=== PATIENT | female | born 1945 | race Caucasian/White ===

== ENCOUNTER 2017-11-06 10:15 | Outpatient (RCR) | payer MEDICARE, SELFPAY ==
--- NOTE | 2017-10-15 10:05 | PR.DATECOV_ITS ---
Dates of Coverage Times for Dates Of Coverage; All dates of coverage are for physician supervision /manager medical affairs for during the times of 08:00 AM through 4:30 PM. Effective May 10, 2013 our hours will be changing to 8:00 to 4:30 on Saturday, Saturday and Saturday. First Date of the Month: 10/15/17 Last Date of the Month: 11/06/17
--- NOTE | 2017-10-15 10:06 | PCM.PR.HP ---
History of Present Illness Arrival date:: 10/15/17 Arrival time:: 10:06 Date of Evaluation: 10/15/17 Referring Physician: Dr. Víctor Garsia Primary Diagnosis: COPD moderate History of Present Illness: 72 year old female who presents to pulmonary rehabilitation today under the care of Dr. Víctor Garsia in [place], [place]. [facility] Breathless Scale: When is the patient short of breath? Y/N Grade: Description of Breathlessness: 0 I only get breathless with strenuous exercise. 1 I get short of breath when hurrying on level ground or walking up a slight hill. 2 On level ground, I walk slower than people of the same age because of breathless, or have to stop for breath when walking at my own pace. 3 I stop for breath after walking 100 yards or after a few minutes on level ground. 4 I am too breathless to leave the house or I am breathless when dressing. Respiratory Problems: Yes: Limited Range of Motion, Wheezing, Anxiety, Panic, Dyspnea with Activity No: Dyspnea at Rest, Dyspnea Lying Down Flat, Cough with Secretions - Secretions Normal Color:: clear Thick:: Yes Thin:: No Cough:: Yes Sleep Disorder Evaluation: CPAP at home for obstructive sleep apnea. EPWORTH SLEEPINESS SCALE 0 = NO chance of dozing 2 = MODERATE chance of dozing 1 = SLIGHT chance of dozing 3 = HIGH chance of dozing : SITUATION: CHANCE OF DOZING: Sitting and Reading Watching TV Sitting inactive in a public place (i.e. Movies) As a passenger in a car for an hour without a break Lying down to rest in the afternoon when permitted Sitting and talking to someone Sitting quietly after lunch without alcohol In a car, while stopped for a few minutes in traffic Total Total Equals: 1-6 = Adequate Sleep 7-8 = Average > 9 = Sleep Study/Consult Indicated Past Medical History Past Medical History: Arthitis, Diabetes - non-insulin dependent, Emphysema, Hypertension, High Cholesterol, Hypoxia - uses home oxygen at 2 liters., Obesity - BMI 35.19, Pulmonary Hypertension, Sleep Apnea - Obstructive sleep apnea (CPAP), - - hypercapnic respiratory failure, COPD, torn right meniscus in knee. Psychiatric History: anxiety Comments: Chronic respiratory failure with hypercapnia and hypoxia, COPD Moderate, Pulmonary Hypertension WHO Group III, lung nodule, History of nicotine use, BMI 35.0-35.9%, right leg primarily but both legs have to wear compression hose. Apparently have venous leaks in the lower extremities, vascular study found various leaks in the veins in the legs. Surgical History: appendectomy - age 15 ruptured appendix., cholecystectomy, - - broken arm age 8. Additional Family History: Family history includes, anemia, aneurysm, cancer, [id number] syndrome, brother heart failure, brain tumor, alcohol abuse maternal grandfather, esophageal cancer, thyroid problems, allergies, asthma, DM type II, hypertension, depression. - Social History Marital Status: Assistive Devices:: wheel chair for long distances, S.O.B. Other potential problems:: bad knees and feet pain. Interest/Hobbies:: gardening, watch TV, Alcohol:: No Drugs:: No Employment:: Retired Smoking Status: Smoker, status unknown Quit Smoking Since: July 07, 2017 Packs per day: 2 Years Smoked: 20 - Living Arrangement Patient lives with other person(s) in the home:: AROUND THE CLOCK - Current/ [facility] No Other Home Health:: No [facility] Cardiac Rehab:: No Life (Palliative) Care Services:: No Tobacco Use & Smoking Cessation:: No Pulmonary Rehab:: No Social History - Smoking History Smoking Status: Smoker, status unknown Years Smokin Packs Smoked per Day: 2 Hx Smoking Cessation Date: July 07, 2017 Hx Tobacco Use: Yes Hx Smoking Exposure: Yes - Alcohol Use Alcohol Usage: No - Substance Abuse Hx Substance Use: No - Occupation Occupation (List type of work in comments):: Retired - Hobbies, Recreation, Social Activities Hobbies: Watch TV, Other - gardening Recreational Activities: I am able to engage in a few activities Medications & Vaccination Info Home Medications: Ambulatory Orders Lisinopril 20 mg PO DAILY 03/05/17 Metformin HCl 500 mg PO BID 03/05/17 Simvastatin 20 mg PO DAILY 03/05/17 Verapamil HCl [Verapamil ER Pm] 200 mg DAILY 03/05/17 Albuterol Sulfate 1.25 mg IH 10/15/17 Oxygen, Home [Home Oxygen] 2 - 4 lpm NASAL 10/15/17 Do you use a peak flow meter at home?: No Do you use a spacer device with your inhalers?: No Number of hospital visits in the last year?: 1 - 6-days at [place] Reason for hospital visits: UNKNOWN Do you see your physician on a regular schedule?: No How often?: as needed Has adequate access & meets healthcare needs?: Yes - Drug Regimen Review Indication of potential clinical significant med issues (drug reactions, ineffective therapy, side effects, interactions, duplicate therapy, omissions, dose errors, or non-compliance)?: No problems found during review Was a physician or the physican designee contacted within one calendar day to resolve clinically significant medication issues, including reconcilitation?: No Review of Systems Constitutional: Denies: Chills, Fever, Weight Change HEENT: Reports: Hard of Hearing, Hearing Changes, Post Nasal Drip. Denies: Head Aches, Sinus Congestion, Sinus Drainage Cardiovascular: Denies: Chest Pain, Palpitations Respiratory: Reports: Shortness of Breath, Shortness of breath upon exertion, Wheezing. Denies: Cough, Shortness of breath at rest, Sputum production Musculoskeletal: Reports: Foot Pain, - - Right knee pain from torn meniscus. Denies: Joint Pain, Joint Tenderness Skin: Denies: Rash, Wounds Neurological: Denies: Numbness, Tingling, Focal weakness Psychiatric: Denies: Anxiety, Depression, Homicidal Ideations, Suicidal Ideations Advanced Directives - Advanced Directives Power of Regional Director: No Living Will: No Advance Directives Information Provided: No Advance Directives on File: No DNR Order?:: No Coping/Social Support/Other - Abuse and Neglect Do you feel safe in your surroundings?:: YES Are there sign/symptoms of abuse?: No Has anyone physically or mentally abused you?: No Has anyone threatened to harm you in any way?: No Been asked to sign a document that you don't understand?: No - Exacerbation History Number of Exacerbations in a year:: 1 Recent exposure to illness?: Yes Known carrier?: No Antibiotic Taken:: Yes I know I have an infection when:: usually cant tell when one is coming on, call the doctor and will get medications for it. - Nutrition Risk Factor Are you on a special diet?: No Diff. chewing/swallowing:: No Have you had a change in your weight?: No Physical Exam - Vital Signs Temperature: 98.7 F Pulse Rate: 79 Respiratory Rate: 20 Pulse Ox at rest: 91 Blood Pressure: 118/84 Nailbeds:: pink Height: 5 ft 2 in Weight:: 87.09 kg Body Mass Index (BMI): 35.1 - Physical Exam General: Alert, Oriented x3, Cooperative Neck: Supple, No JVD, Negative Carotid Bruits, Negative Hepatojugular Reflux Lungs: Normal air movement, Diminished, Rhonchi, Short of Breath, Wheezes Cardiovascular: Regular rate, Regular Rhythm, No murmurs Extremities: No clubbing, No cyanosis, No edema, Capillary Refill Less than 3 Seconds Musculoskeletal: No Tenderness to Palpation of Joints or Extremities Psych/Mental Status: Normal Affect, Appropriate - Pain Is Patient Pain Free?: Yes Pain Location: none - Hearing/Speech/Vision/Spiritual Cultural/Adventist Needs that may affect Treatment Plan: No Do you have any Spiritual/Emotional needs of which our Negative Stripper Ministry could be of assistance?: No Negative Stripper to contact Place of Orthodox?: No Primary Language: German Preferred Language: German Visual Difficulty: Near Sighted, Far Sighted - Bifocal lenses for vision correction - Motivation to Participate On a scale of 1 to 10, how prepared are you to commit to attending pulmonary rehabilitation?: 0 - didnt know it involved exercise! What do you see as barriers to successfully being able to complete the program?: walking on treadmill. Patient advised other modalities can be used. What do you see as the benefits of succesfully completing the program? In other words, what do you hope to get out of participating in the program?: lose some weight, breathe better using oxygen. Are there issues you are dealing with that will interfere with completing the program?: quit smoking eating more sweets. Do you have a spouse or signficant other, family or friends who will help support you to complete the program?: Diagnostic Data Review - Diagnostic and Imaging Results CXR:: no - 6 Minute Walk Test 6 Minute Walk Test: no - Cardiovascular Studies Echocardiogram: no - Pulmonary Function Test FEV1:: 1.15 FVC:: 1.87 FEV1/FVC%:: 61 Gold Classification: GOLD class II(mod. COPD)with FEV1/FVC <70%, 50%</= FEV1< 50% predicted Functioning ADL/IADL - Functional Capacity ADL/IADL GROOMING: Current ability to tend safely to personal hygiene needs (i.e., washing face/hands, hair care, shaving or make up, teeth or denture care, fingernail care).: Able to groom self unaided, w/ or w/o the use of assistive devices. Current ABILITY TO DRESS UPPER BODY safely (with or w/out dressing aids) including undergarments, pullovers, front-opening shirts & blouses, managing zippers, buttons, & snaps:: Gets clothes out, puts on, and removes from upper body w/o assist. Current ABILITY TO DRESS LOWER BODY safely (with or w/out dressing aids) including undergarments, slacks, socks or nylons, shoes:: Able to obtain, put on, & remove clothing and shoes w/out assistance. Bathing: Current ability to wash entire body safely. EXCLUDES grooming (washing face, washing hands and shampooing hair): Uses device to bathe independently in tub/shower, incl getting in &out TOILET TRANSFERRING: Current ability to get to & from the toilet/BSC safely and transfer on & off toilet/commode.: Gets to & from toilet, transfers independently w/ or w/o a device. TOILETING HYGIENE: Current ability to maintain perineal hygiene safely, adjust clothes and/or incontinence pads before & after using toilet, commode, bedpan, urinal. If managing ostomy, includes cleaning: Manages toileting hygiene & clothing management w/out assist TRANSFERRING: Current ability to move safely from bed to chair, or ability to turn and position self in bed if patient is bedfast.: Able to independently transfer. AMBULATION/LOCOMOTION: Current ability to walk safely, once in a standing position, or use wheelchair, once in a seated position, on a variety of surfaces.: Chairfast, unable to ambulate but is able to wheel self independently. FEEDING or EATING: Current ability to feed self meals and snacks safely. NOTE: This refers only to the process of eating, chewing and swallowing, not preparing the food to be eaten.: Able to independently fee ABILITY TO PLAN AND PREPARE MEALS: (e.g., cereal, sandwich) or reheat delivered meals safely.: IND prepare light meals/reheat delvrd meals/Or can but hasn't done so. ABILITY TO USE TELEPHONE: Current ability to answer the phone safely, including dialing numbers, and effectively using the telephone to communicate.: Able to dial numbers and answer calls appropriately and as desired. - Pt Functioning Prior to Problem Self-Care (e.g.,grooming, dressing, & bathing): INDEPENDENT Ambulation: NEEDED SOME HELP Transfer: INDEPENDENT Household tasks (e.g., light meal prep, laundry, shopping): INDEPENDENT
--- NOTE | 2017-10-15 10:17 | PR.HP_ITS ---
History of Present Illness Arrival date:: 10/15/17 Arrival time:: 10:06 Date of Evaluation: 10/15/17 Referring Physician: Dr. Víctor Garsia Primary Diagnosis: COPD moderate History of Present Illness: 72 year old female who presents to pulmonary rehabilitation today under the care of Dr. Víctor Garsia in [place], [place]. [facility] Breathless Scale: When is the patient short of breath? Y/N Grade: Description of Breathlessness: 0 I only get breathless with strenuous exercise. 1 I get short of breath when hurrying on level ground or walking up a slight hill. 2 On level ground, I walk slower than people of the same age because of breathless, or have to stop for breath when walking at my own pace. 3 I stop for breath after walking 100 yards or after a few minutes on level ground. 4 I am too breathless to leave the house or I am breathless when dressing. Respiratory Problems: Yes: Limited Range of Motion, Wheezing, Anxiety, Panic, Dyspnea with Activity No: Dyspnea at Rest, Dyspnea Lying Down Flat, Cough with Secretions - Secretions Normal Color:: clear Thick:: Yes Thin:: No Cough:: Yes Sleep Disorder Evaluation: CPAP at home for obstructive sleep apnea. EPWORTH SLEEPINESS SCALE 0 = NO chance of dozing 2 = MODERATE chance of dozing 1 = SLIGHT chance of dozing 3 = HIGH chance of dozing : SITUATION: CHANCE OF DOZING: Sitting and Reading Watching TV Sitting inactive in a public place (i.e. Movies) As a passenger in a car for an hour without a break Lying down to rest in the afternoon when permitted Sitting and talking to someone Sitting quietly after lunch without alcohol In a car, while stopped for a few minutes in traffic Total Total Equals: 1-6 = Adequate Sleep 7-8 = Average > 9 = Sleep Study/Consult Indicated Past Medical History Past Medical History: Arthitis, Diabetes - non-insulin dependent, Emphysema, Hypertension, High Cholesterol, Hypoxia - uses home oxygen at 2 liters., Obesity - BMI 35.19, Pulmonary Hypertension, Sleep Apnea - Obstructive sleep apnea (CPAP), - - hypercapnic respiratory failure, COPD, torn right meniscus in knee. Psychiatric History: anxiety Comments: Chronic respiratory failure with hypercapnia and hypoxia, COPD Moderate, Pulmonary Hypertension WHO Group III, lung nodule, History of nicotine use, BMI 35.0-35.9%, right leg primarily but both legs have to wear compression hose. Apparently have venous leaks in the lower extremities, vascular study found various leaks in the veins in the legs. Surgical History: appendectomy - age 15 ruptured appendix., cholecystectomy, - - broken arm age 8. Additional Family History: Family history includes, anemia, aneurysm, cancer, [id number] syndrome , brother heart failure, brain tumor, alcohol abuse maternal grandfather, esophageal cancer, thyroid problems, allergies, asthma, DM type II, hypertension , depression. - Social History Marital Status: Assistive Devices:: wheel chair for long distances, S.O.B. Other potential problems:: bad knees and feet pain. Interest/Hobbies:: gardening, watch TV, Alcohol:: No Drugs:: No Employment:: Retired Smoking Status: Smoker, status unknown Quit Smoking Since: July 07, 2017 Packs per day: 2 Years Smoked: 20 - Living Arrangement Patient lives with other person(s) in the home:: AROUND THE CLOCK - Current/ [facility] No Other Home Health:: No [facility] Cardiac Rehab:: No Life (Palliative) Care Services:: No Tobacco Use & Smoking Cessation:: No Pulmonary Rehab:: No Social History - Smoking History Smoking Status: Smoker, status unknown Years Smokin Packs Smoked per Day: 2 Hx Smoking Cessation Date: July 07, 2017 Hx Tobacco Use: Yes Hx Smoking Exposure: Yes - Alcohol Use Alcohol Usage: No - Substance Abuse Hx Substance Use: No - Occupation Occupation (List type of work in comments):: Retired - Hobbies, Recreation, Social Activities Hobbies: Watch TV, Other - gardening Recreational Activities: I am able to engage in a few activities Medications & Vaccination Info Home Medications: Ambulatory Orders Lisinopril 20 mg PO DAILY 03/05/17 Metformin HCl 500 mg PO BID 03/05/17 Simvastatin 20 mg PO DAILY 03/05/17 Verapamil HCl [Verapamil ER Pm] 200 mg DAILY 03/05/17 Albuterol Sulfate 1.25 mg IH 10/15/17 Oxygen, Home [Home Oxygen] 2 - 4 lpm NASAL 10/15/17 Do you use a peak flow meter at home?: No Do you use a spacer device with your inhalers?: No Number of hospital visits in the last year?: 1 - 6-days at [place] Reason for hospital visits: UNKNOWN Do you see your physician on a regular schedule?: No How often?: as needed Has adequate access & meets healthcare needs?: Yes - Drug Regimen Review Indication of potential clinical significant med issues (drug reactions, ineffective therapy, side effects, interactions, duplicate therapy, omissions, dose errors, or non-compliance)?: No problems found during review Was a physician or the physican designee contacted within one calendar day to resolve clinically significant medication issues, including reconcilitation?: No Review of Systems Constitutional: Denies: Chills, Fever, Weight Change HEENT: Reports: Hard of Hearing, Hearing Changes, Post Nasal Drip. Denies: Head Aches, Sinus Congestion, Sinus Drainage Cardiovascular: Denies: Chest Pain, Palpitations Respiratory: Reports: Shortness of Breath, Shortness of breath upon exertion, Wheezing. Denies: Cough, Shortness of breath at rest, Sputum production Musculoskeletal: Reports: Foot Pain, - - Right knee pain from torn meniscus. Denies: Joint Pain, Joint Tenderness Skin: Denies: Rash, Wounds Neurological: Denies: Numbness, Tingling, Focal weakness Psychiatric: Denies: Anxiety, Depression, Homicidal Ideations, Suicidal Ideations Advanced Directives - Advanced Directives Power of Interline Clerk: No Living Will: No Advance Directives Information Provided: No Advance Directives on File: No DNR Order?:: No Coping/Social Support/Other - Abuse and Neglect Do you feel safe in your surroundings?:: YES Are there sign/symptoms of abuse?: No Has anyone physically or mentally abused you?: No Has anyone threatened to harm you in any way?: No Been asked to sign a document that you don't understand?: No - Exacerbation History Number of Exacerbations in a year:: 1 Recent exposure to illness?: Yes Known carrier?: No Antibiotic Taken:: Yes I know I have an infection when:: usually cant tell when one is coming on, call the doctor and will get medications for it. - Nutrition Risk Factor Are you on a special diet?: No Diff. chewing/swallowing:: No Have you had a change in your weight?: No Physical Exam - Vital Signs Temperature: 98.7 F Pulse Rate: 79 Respiratory Rate: 20 Pulse Ox at rest: 91 Blood Pressure: 118/84 Nailbeds:: pink Height: 5 ft 2 in Weight:: 87.09 kg Body Mass Index (BMI): 35.1 - Physical Exam General: Alert, Oriented x3, Cooperative Neck: Supple, No JVD, Negative Carotid Bruits, Negative Hepatojugular Reflux Lungs: Normal air movement, Diminished, Rhonchi, Short of Breath, Wheezes Cardiovascular: Regular rate, Regular Rhythm, No murmurs Extremities: No clubbing, No cyanosis, No edema, Capillary Refill Less than 3 Seconds Musculoskeletal: No Tenderness to Palpation of Joints or Extremities Psych/Mental Status: Normal Affect, Appropriate - Pain Is Patient Pain Free?: Yes Pain Location: none - Hearing/Speech/Vision/Spiritual Cultural/Sikhism Needs that may affect Treatment Plan: No Do you have any Spiritual/Emotional needs of which our Radio Frequency Engineer Ministry could be of assistance?: No Radio Frequency Engineer to contact Place of Jehovah'S Witness?: No Primary Language: Botswanan Preferred Language: Botswanan Visual Difficulty: Near Sighted, Far Sighted - Bifocal lenses for vision correction - Motivation to Participate On a scale of 1 to 10, how prepared are you to commit to attending pulmonary rehabilitation?: 0 - didnt know it involved exercise! What do you see as barriers to successfully being able to complete the program? : walking on treadmill. Patient advised other modalities can be used. What do you see as the benefits of succesfully completing the program? In other words, what do you hope to get out of participating in the program?: lose some weight, breathe better using oxygen. Are there issues you are dealing with that will interfere with completing the program?: quit smoking eating more sweets. Do you have a spouse or signficant other, family or friends who will help support you to complete the program?: Diagnostic Data Review - Diagnostic and Imaging Results CXR:: no - 6 Minute Walk Test 6 Minute Walk Test: no - Cardiovascular Studies Echocardiogram: no - Pulmonary Function Test FEV1:: 1.15 FVC:: 1.87 FEV1/FVC%:: 61 Gold Classification: GOLD class II(mod. COPD)with FEV1/FVC <70%, 50%</= FEV1< 50 % predicted Functioning ADL/IADL - Functional Capacity ADL/IADL GROOMING: Current ability to tend safely to personal hygiene needs (i.e., washing face/hands, hair care, shaving or make up, teeth or denture care, fingernail care).: Able to groom self unaided, w/ or w/o the use of assistive devices. Current ABILITY TO DRESS UPPER BODY safely (with or w/out dressing aids) including undergarments, pullovers, front-opening shirts & blouses, managing zippers, buttons, & snaps:: Gets clothes out, puts on, and removes from upper body w/o assist. Current ABILITY TO DRESS LOWER BODY safely (with or w/out dressing aids) including undergarments, slacks, socks or nylons, shoes:: Able to obtain, put on , & remove clothing and shoes w/out assistance. Bathing: Current ability to wash entire body safely. EXCLUDES grooming (washing face, washing hands and shampooing hair): Uses device to bathe independently in tub/shower, incl getting in &out TOILET TRANSFERRING: Current ability to get to & from the toilet/BSC safely and transfer on & off toilet/commode.: Gets to & from toilet, transfers independently w/ or w/o a device. TOILETING HYGIENE: Current ability to maintain perineal hygiene safely, adjust clothes and/or incontinence pads before & after using toilet, commode, bedpan, urinal. If managing ostomy, includes cleaning: Manages toileting hygiene & clothing management w/out assist TRANSFERRING: Current ability to move safely from bed to chair, or ability to turn and position self in bed if patient is bedfast.: Able to independently transfer. AMBULATION/LOCOMOTION: Current ability to walk safely, once in a standing position, or use wheelchair, once in a seated position, on a variety of surfaces.: Chairfast, unable to ambulate but is able to wheel self independently. FEEDING or EATING: Current ability to feed self meals and snacks safely. NOTE: This refers only to the process of eating, chewing and swallowing, not preparing the food to be eaten.: Able to independently fee ABILITY TO PLAN AND PREPARE MEALS: (e.g., cereal, sandwich) or reheat delivered meals safely.: IND prepare light meals/reheat delvrd meals/Or can but hasn't done so. ABILITY TO USE TELEPHONE: Current ability to answer the phone safely, including dialing numbers, and effectively using the telephone to communicate.: Able to dial numbers and answer calls appropriately and as desired. - Pt Functioning Prior to Problem Self-Care (e.g.,grooming, dressing, & bathing): INDEPENDENT Ambulation: NEEDED SOME HELP Transfer: INDEPENDENT Household tasks (e.g., light meal prep, laundry, shopping): INDEPENDENT
--- NOTE | 2017-10-15 10:25 | PR.ITP_ITS ---
General Information - General Information Admitting Diagnosis: COPD Moderate - Education/Goals Individual Counseling: Initial Assessment: Dyspnea control techniques at rest, activity, and ADLs, Inhaled and respiratory medications, Exacerbation prevention & management, ADL management and pacing, Nutrition & weight management, Home exercise plan & guidelines Patient Goals: Breathe better: Initial Assessment, Increase endurance/stamina: Initial Assessment, Return to recreation/hobby: Initial Assessment, Symptom management: Initial Assessment, Improve weight: Initial Assessment Exercise - Initial Assessment - Visit Date of Eval: 10/15/17 - Problem/Goals Problems: No regular exercise, Knowledge deficit exercise guidelines, Knowledge deficit exercise safety - Exercise Prescription Mode:: Biodyne, Airdyne, NuStep, Arm Ergometer Frequency (x/week): 3 Duration:: 30 MET LEVEL:: 2 HR (bpm):: 104 - 104-112 THHR Exercise Progression: as tolerated - Plan Plan and Plan to Review:: Benefits of exercise, Core components of exercise, How to measure dyspnea level, How to monitor dyspnea level, Exercise intensity, Exercise safety guideline, Home exercise guidelines, [facility]: 3-4/11-13 Disease Management - Initial - Problems/Goals-Hypoxemia Hypoxemia Problems:: Hypoxemia, Poor knowledge of O2 use/safety Hypoxemia Goals:: Hypoxemia managed, Port system, Using O2 as Rx's safely - Problems/Goals-Medications Medication Goals: Correct technique/timing & care of MDI, DPI, nebulizer, and spacer. - Problems/Goals-Bronchial Hygiene Bronchial Hygiene Problems:: Ineffective secretion clearance, Respiratory infection Prevention/Management Bronchial Hygiene Goals:: Pt demonstrates effective cough, effective secretion clearance., Pt describes signs and symptoms of infection. - Initial Assessment SpO2:: 91 FiO2:: 0 Port O2:: 2 DME:: [facility] DME Medications: Yes MDI, Yes NEB Patient Reports:: Non-productive cough, Rare respiratory infections, 0-1/yr respiratory infection, Hospitalized in the past 12 months [list how many times] - Plans Hypoxemia Plan:: Monitor SpO2 rest & with exercise, Train appropriate O2 use at rest, Train appropriate O2 use with exercise, Train O2 safety & systems Reviewed prescribed medications:: Purpose, Schedule, Side effects, Importance of compliance Instruct correct technique/timing & care:: Nebulizer, Return demo use of inhaler Bronchial Hygiene Plan: Vibratory PEP device, Role of exercise in secretion clearance, Hydration, Hand hygiene, Evaluate sputum, When to call MD, Signs/ symptoms to report: Psychosocial - Initial Assess - Problems/Goals Problems: Impaired Q.O.L. - Psychosocial Test Depression:: Impaired QOL Referred to MD for counseling:: No - Plan Reviewed screening results: No Instructions given regarding:: Benefits of exercise, Relaxation techniques, Training in coping strategies Tobacco - Initial Assessment - Program Goals Tobacco Program Goals: Complete smoking cessation. Attend education classes. Improve Knowledge Test score - Stage of Change Stages of Change:: Contemplate - Learning Barriers Learning Barriers: Cognitive - Family Support Do you have family support?: Yes - Tobacco Use Tobacco Use: Cigarettes How long ago did you quit using tobacco products?: Less than 6 months ago How many cigarettes do you smoke per day?: 40 Years Smokin Do you use smokeless tobacco?: No - Intervention Smoking Cessation Referral:: No Individual Education/Counseling:: No Education Schedule Given:: Yes - Education Gave Education Materials For:: Pulmonary Disease, Risk Factors, Breathing Techniques, Medical Compliance, Pulmonary A&P, Exacerbation Signs & Symptoms, Stress & Relaxation Nutrition/Wt Mgmt - Initial - Problems/Goals Problems: Overweight Goals: Wt Loss 1-2 lbs per week - Weight Management Knowledge Deficit Management of:: Overweight Admit Height:: 5 ft 2 in Admit Weight:: 87.09 kg Admit BMI:: 35.1 - Diabetes Diabetes:: Yes Insulin: No Do you monitor your blood sugar at home?: No - as needed - Intervention Referral to Diabetic Clinic:: Yes Will attend diet classes:: Yes - Plan Nutrition Plan: Yes Nutrition education class:, Yes Medication education class [ Prednisone]:, Yes Weight control education class: Patient Health Questionnaire Initial Assessment 1. Little interest or pleasure in doing things: More than half the days 2. Feeling down, depressed, or hopeless: Not at all 3. Trouble falling or staying asleep, or sleeping too much: Not at all 4. Feeling tired or having little energy: More than half the days 5. Poor appetite or overeating: More than half the days 6. Feeling bad about yourself -- or that you are a failure or have let yourself or your family down: Not at all 7. Trouble concentrating on things, such as reading the newspaper or watching television: Not at all 8. Moving or speaking so slowly that other people could have noticed. Or the opposite - being so fidgety or restless that you have been moving around a lot more than usual: Nearly every day 9. Thoughts that you would be better off , or of hurting yourself in some way: Not at all How difficult have these problems made it for you to do your work, take care of things at home, or get along with other people?: Somewhat difficult Total Score: 9 COPD Knowledge Test Initial COPD is a lung disease that:: Makes it hard to breathe & gets worse over time In the [place] the term COPD describes 2 main lung conditions:: Emphysema & pulmonary hypertension The most common lung irritant that causes COPD is:: Cigarette smoke Common signs and symptoms of COPD include:: An ongoing cough/cough that produces a large amount of mucus, & SOB If you have COPD, what steps can you take?: All of the above Swelling of the ankles is common in COPD:: False Fatigue [tiredness] is common in COPD:: True Wheezing is common in COPD:: True Crushing chest pain is common in COPD:: False Rapid weight loss is common in COPD:: False Breathlessness is a normal response to exercise: True Exercise should be avoided if it makes you short of breath: False All bronchodilators act within 10 minutes: True A spacer device increases the medication to the lungs: False Annual flu vaccine is recommended for pts w/lung disease: True COPD Knowledge Test Total Score:: 12 COPD Assessment Test [CAT] - Questions Never cough = 0, Cough all the time = 5: 0 No phlegm = 0, Chest full of phlegm = 5: 1 No chest tightness = 0, Chest very tight = 5: 0 No breathless w/exertion = 0, Very breathless w/exertion = 5: 5 No limitations w/activity = 0, Very limited w/activity = 5: 4 Confident leaving home = 0, Not at all confident = 5: 1 Sleep soundly = 0, Don't sleep soundly = 5: 0 Lots of energy = 0, No energy at all = 5: 2 Total CAT score:: 13 Self-Efficacy Initial Assessment We would like to know how confident you are in doing certain activities. Please select your confidence level for:: Select your confidence level for the following using the scale 1-10 where 1 is not at all confident and 10 is totally confident. Your score is the average of all 6 responses. Fatigue: How confident are you that you can keep the fatigue caused by your disease from interfering with the things you want to do? Select Number: 8 Physical Discomfort or Pain: How confident are you that you can keep the physical discomfort or pain of your disease from interfering with the things you want to do? Select Number: 6 Emotional Distress: How confident are you that you can keep the emotional distress caused by your disease from interfering with the things you want to do? Select Number: 10 Other Symptoms or Health Problems: How confident are you that you can keep other symptoms or health problems from interfering with the things you want to do? Select Number: 1 Different Tasks and Activities: How confident are you that you can do the different tasks and activities needed to manage your health condition so as to reduce your need to see a doctor? Select Number: 8 Medication: How confident are you that you can do things other than just taking medication to reduce how much your illness affects your everyday life? Select Number: 7 Total Score:: 6 Nutrition Survey - Nutrition Survey Instructions Scoring Instructions: Scoring is as follows: Yes = 1 points. No = 0 point. Patient score that is >/=12 is considered to be at potential nutritional risk and could benefit from a referral to a registered dietitian. - Nutrition Survey Initial Have you lost >10 lbs over the past 2 months without trying?: No Are you following a special diet at home for diabetes, low fat, or low salt?: No Are you interested in meeting with a dietitian for help understanding your diet? : No Do you eat less than 3 meals a day?: Yes Do you eat fatty meats (otto, sausage, ribs, etc), fried foods, desserts, large amounts of salad dressings, margarine, butter, or cheese most days?: Yes Do you have food allergies? [Enter types in comment field]: No Do you eat in restaurants more than 3 times a week?: No Do you season food with salt, seasoning salt, or garlic salt?: Yes Do you used canned, boxed, frozen meals, or soups, seasoning packets?: Yes Total Score:: 4
[2017-10-15 10:52] VITALS: BP 118/84; PULSE 79; RESP 20; TEMP 37.1; O2SAT 91; BMI 35.1
[2017-10-15 11:35] VITALS: O2SAT 91; BMI 35.1
--- NOTE | 2017-11-04 13:47 | PCM.PR.DAT ---
Dates of Coverage Times for Dates Of Coverage; All dates of coverage are for physician supervision/medical laboratory technician for during the times of 08:00 AM through 4:30 PM. Effective May 10, 2013 our hours will be changing to 8:00 to 4:30 on Saturday, Saturday and Saturday. First Date of the Month: 11/07/17 Last Date of the Month: 12/06/17
--- NOTE | 2017-11-04 13:55 | PR.ITP_ITS ---
Exercise - 30-Day Assessment - Exercise Prescription Mode:: NuStep, Arm Ergometer Frequency (x/week): 3 Duration:: 30 Aerobic Exercise [30-60 min 3-7x/week]:: Not progressing Target heart rate: 84 - THRR 100-106 [facility] MET Level:: 2 - Home Exercise Home Exercise:: No Disease Management - 30-Day - Hypoxemia Reassessment: Has home O2 as prescribed, Uses port O2 as prescribed - Medications Medication list reviewed:: Yes Taking medications 100% of the time:: Approximately 50% of the time - Bronchial Hygiene Bronchial Hygiene Plan: Yes Pt demo correct for improved hydration - needs reinforced, Yes Pt demo correct for hand hygiene - needs reinforced Psychosocial - 30-Day - Assessment Reassessment: Practicing interventions - needs encouragement Tobacco - 30-Day Assessment - Program Goals Tobacco Program Goals: Complete smoking cessation. Attend education classes. Improve Knowledge Test score - Stage of Change Stages of Change:: Action - Learning Barriers Learning Barriers: Participates in education - Family Support Do you have family support?: Yes - - Tobacco Use Tobacco Use: Cigarettes Do you use smokeless tobacco?: No - Intervention Smoking Cessation Referral:: Yes Individual Education/Counseling:: No Education Schedule Given:: Yes - Education Gave Education Materials For:: Tobacco Triggers, Pulmonary Disease, Risk Factors , Breathing Techniques, Medical Compliance, Pulmonary A&P, Exacerbation Signs & Symptoms, Stress & Relaxation Nutrition/Wt Mgmt - 30-Day - Weight Management Weight Assessment:: Wt stable Weight:: 86.863 kg Weight Goals Progress:: Not progressing Patient Health Questionnaire 30-Day Re-eval Assessment 1. Little interest or pleasure in doing things: More than half the days 2. Feeling down, depressed, or hopeless: Several days 3. Trouble falling or staying asleep, or sleeping too much: Several days 4. Feeling tired or having little energy: More than half the days 5. Poor appetite or overeating: Not at all 6. Feeling bad about yourself -- or that you are a failure or have let yourself or your family down: Not at all 7. Trouble concentrating on things, such as reading the newspaper or watching television: More than half the days 8. Moving or speaking so slowly that other people could have noticed. Or the opposite - being so fidgety or restless that you have been moving around a lot more than usual: More than half the days 9. Thoughts that you would be better off , or of hurting yourself in some way: Several days How difficult have these problems made it for you to do your work, take care of things at home, or get along with other people?: Very difficult Total Score: 11 COPD Assessment Test [CAT] - Questions Never cough = 0, Cough all the time = 5: 0 No phlegm = 0, Chest full of phlegm = 5: 1 No chest tightness = 0, Chest very tight = 5: 0 No breathless w/exertion = 0, Very breathless w/exertion = 5: 5 No limitations w/activity = 0, Very limited w/activity = 5: 4 Confident leaving home = 0, Not at all confident = 5: 1 Sleep soundly = 0, Don't sleep soundly = 5: 0 Lots of energy = 0, No energy at all = 5: 2 Total CAT score:: 13 Self-Efficacy 30-Day Re-eval Assessment We would like to know how confident you are in doing certain activities. Please select your confidence level for:: Select your confidence level for the following using the scale 1-10 where 1 is not at all confident and 10 is totally confident. Your score is the average of all 6 responses. Fatigue: How confident are you that you can keep the fatigue caused by your disease from interfering with the things you want to do? Select Number: 8 Physical Discomfort or Pain: How confident are you that you can keep the physical discomfort or pain of your disease from interfering with the things you want to do? Select Number: 6 Emotional Distress: How confident are you that you can keep the emotional distress caused by your disease from interfering with the things you want to do? Select Number: 8 Other Symptoms or Health Problems: How confident are you that you can keep other symptoms or health problems from interfering with the things you want to do? Select Number: 1 Different Tasks and Activities: How confident are you that you can do the different tasks and activities needed to manage your health condition so as to reduce your need to see a doctor? Select Number: 7 Medication: How confident are you that you can do things other than just taking medication to reduce how much your illness affects your everyday life? Select Number: 6 Total Score:: 6
== END 2017-11-06 23:59 ==
LOC: PR 10:15
PROVIDERS: Family Provider Family Medicine; PCP Family Medicine; Visit Provider Internal Medicine Critical Care Medicine
DX: I27.20 Pulmonary hypertension, unspecified (principal)
CPT/HCPCS: 97150; G0424

== ENCOUNTER 2017-12-06 10:15 | Outpatient (RCR) | payer MEDICARE, SELFPAY ==
[2017-11-07 00:13] VITALS: BP 118/84; PULSE 79; RESP 20; TEMP 37.1; O2SAT 91; BMI 35.1
--- NOTE | 2017-12-02 15:59 | PR.DATECOV_ITS ---
Dates of Coverage Times for Dates Of Coverage; All dates of coverage are for physician supervision /family practice medical doctor for during the times of 08:00 AM through 4:30 PM. Effective May 10, 2013 our hours will be changing to 8:00 to 4:30 on Saturday, Saturday and Saturday. First Date of the Month: 12/08/17 Last Date of the Month: 01/06/18
--- NOTE | 2017-12-02 15:59 | PCM.PR.TP ---
Exercise - 60-Day Assessment - Current Level Mode:: NuStep, Arm Ergometer Frequency (x/week): 3 Duration:: 30 Aerobic Exercise [30-60 min 3-7x/week]:: Not progressing Target heart rate: 100 - max hr 88 [facility] MET Level:: 3 - Home Exercise Home Exercise:: No Disease Management - 60-Day - Hypoxemia Reassessment: Using O2 as prescribed, Has home O2 as prescribed, Uses port O2 as prescribed - Medications Medication list reviewed:: Yes Taking medications 100% of the time:: Approximately 75% of the time Medication reassessment: Yes Pt demonstrates correct technique timing for MDI, Yes Pt demonstrates correct technique timing for DPI, Yes Pt demonstrates correct technique timing for NEB, Yes Pt demonstrates correct technique timing for spacer - return use spacer device - Bronchial Hygiene Bronchial Hygiene Plan: Yes Pt demo correct for device - return use of acapella Psychosocial - 60-Day - Assessment Depression reassess: Management of stress: Not progressing, Management of depression: Not progressing, Practicing interventions: Not progressing Tobacco - 60-Day Assessment - Program Goals Tobacco Program Goals: Complete smoking cessation. Attend education classes. Improve Knowledge Test score - Stage of Change Stages of Change:: Contemplate - Learning Barriers Learning Barriers: Participates in education - Family Support Do you have family support?: Yes - Tobacco Use Do you use smokeless tobacco?: No - Intervention Smoking Cessation Referral:: No Individual Education/Counseling:: No Education Schedule Given:: Yes - Education Gave Education Materials For:: Pulmonary Disease, Risk Factors, Breathing Techniques, Medical Compliance, Pulmonary A&P, Exacerbation Signs & Symptoms, Stress & Relaxation Nutrition/Wt Mgmt - 60-Day - Weight Management Weight Assessment:: Wt stable Weight:: 191 lb Weight Goals Progress:: Not progressing Patient Health Questionnaire 60-Day Re-eval Assessment 1. Little interest or pleasure in doing things: More than half the days 2. Feeling down, depressed, or hopeless: Not at all 3. Trouble falling or staying asleep, or sleeping too much: Not at all 4. Feeling tired or having little energy: More than half the days 5. Poor appetite or overeating: More than half the days 6. Feeling bad about yourself -- or that you are a failure or have let yourself or your family down: Not at all 7. Trouble concentrating on things, such as reading the newspaper or watching television: Not at all 8. Moving or speaking so slowly that other people could have noticed. Or the opposite - being so fidgety or restless that you have been moving around a lot more than usual: Nearly every day 9. Thoughts that you would be better off , or of hurting yourself in some way: Not at all How difficult have these problems made it for you to do your work, take care of things at home, or get along with other people?: Somewhat difficult Total Score: 9 COPD Assessment Test [CAT] - Questions Never cough = 0, Cough all the time = 5: 0 No phlegm = 0, Chest full of phlegm = 5: 1 No chest tightness = 0, Chest very tight = 5: 0 No breathless w/exertion = 0, Very breathless w/exertion = 5: 5 No limitations w/activity = 0, Very limited w/activity = 5: 4 Confident leaving home = 0, Not at all confident = 5: 1 Sleep soundly = 0, Don't sleep soundly = 5: 0 Lots of energy = 0, No energy at all = 5: 2 Total CAT score:: 13 Self-Efficacy 60-Day Re-eval Assessment We would like to know how confident you are in doing certain activities. Please select your confidence level for:: Select your confidence level for the following using the scale 1-10 where 1 is not at all confident and 10 is totally confident. Your score is the average of all 6 responses. Fatigue: How confident are you that you can keep the fatigue caused by your disease from interfering with the things you want to do? Select Number: 8 Physical Discomfort or Pain: How confident are you that you can keep the physical discomfort or pain of your disease from interfering with the things you want to do? Select Number: 6 Emotional Distress: How confident are you that you can keep the emotional distress caused by your disease from interfering with the things you want to do? Select Number: 10 Other Symptoms or Health Problems: How confident are you that you can keep other symptoms or health problems from interfering with the things you want to do? Select Number: 1 Different Tasks and Activities: How confident are you that you can do the different tasks and activities needed to manage your health condition so as to reduce your need to see a doctor? Select Number: 8 Medication: How confident are you that you can do things other than just taking medication to reduce how much your illness affects your everyday life? Select Number: 7 Total Score:: 6
== END 2017-12-07 23:59 ==
LOC: PR 10:15
PROVIDERS: Family Provider Family Medicine; PCP Family Medicine; Visit Provider Internal Medicine Critical Care Medicine
DX: J44.9 Chronic obstructive pulmonary disease, unspecified (principal)
CPT/HCPCS: 97150; G0424

== ENCOUNTER → 2017-12-30 11:14 | Outpatient (CLI) | payer MEDICARE, SELFPAY ==
--- NOTE | 2017-12-30 11:19 | RAD_ITS ---
STUDY: X-RAY - THORACIC SPINE REASON FOR EXAM: Female, 72 years old. Pain. TECHNIQUE: 3 view(s) of the thoracic spine were obtained. COMPARISON: None. FINDINGS: Normal kyphosis of the thoracic spine. There is no substantial scoliosis. There is severe multilevel endplate spondylosis of the thoracic vertebrae. There is severe multilevel disc space narrowing of the thoracic spine. The soft tissue structures are unremarkable. RAD/Thoracic Spine 3 Views IMPRESSION: No acute abnormalities. 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 Electronically Signed: Jacob Duarte MD at 16:35 EDT , Service support ,
== END ==
PROVIDERS: Family Provider Family Medicine; PCP Family Medicine; Visit Provider Chiropractor
DX: S23.3XXA Sprain of ligaments of thoracic spine, initial encounter (principal)
CPT/HCPCS: 72072; 97150; G0424

== ENCOUNTER 2018-01-06 10:15 | Outpatient (RCR) | payer MEDICARE, SELFPAY ==
[2017-12-08 00:17] VITALS: BP 118/84; PULSE 79; RESP 20; TEMP 37.1; O2SAT 91; BMI 35.1
--- NOTE | 2017-12-31 10:14 | PR.ITP_ITS ---
Exercise - Final Assessment - Exercise Prescription Mode:: NuStep, Arm Ergometer Frequency (x/week): 3 - 12/30/17-01/06/18 Duration:: 30 Aerobic Exercise [30-60 min 3-7x/week]:: Not progressing Further followup [see D/C Summary]:: No Target heart rate: 100 [facility].5 MET Level:: 4.5 - Patient reached maximum potential - Home Exercise Home Exercise:: No Disease Management - Final - Hypoxemia Final Assessment: Demonstrates knowledge of O2 Rx at rest, Demonstrates knowledge of O2 Rx with exercise, Using O2 as prescribed, Has home O2 as prescribed, Uses port O2 as prescribed - Medications Medication list reviewed:: Yes Taking medications 100% of the time:: Met Psychosocial - Final Assess - Assessment Depression reassess: Management of stress: Met, Management of depression: Progressing, Practicing interventions: Progressing Tobacco - Final Assessment - Program Goals Tobacco Program Goals: Complete smoking cessation. Attend education classes. Improve Knowledge Test score - Stage of Change Stages of Change:: Action - Learning Barriers Learning Barriers: Participates in education - Family Support Do you have family support?: Yes - Tobacco Use Do you use smokeless tobacco?: No - Intervention Smoking Cessation Referral:: No Individual Education/Counseling:: No Education Schedule Given:: Yes - Education Education Goal Reached?: Yes Nutrition/Wt Mgmt - Final - Weight Management Weight:: 198 lb - down 3 pounds this month Patient Health Questionnaire Discharge Assessment 1. Little interest or pleasure in doing things: More than half the days 2. Feeling down, depressed, or hopeless: Not at all 3. Trouble falling or staying asleep, or sleeping too much: Not at all 4. Feeling tired or having little energy: More than half the days 5. Poor appetite or overeating: More than half the days 6. Feeling bad about yourself -- or that you are a failure or have let yourself or your family down: Not at all 7. Trouble concentrating on things, such as reading the newspaper or watching television: Not at all 8. Moving or speaking so slowly that other people could have noticed. Or the opposite - being so fidgety or restless that you have been moving around a lot more than usual: Nearly every day 9. Thoughts that you would be better off , or of hurting yourself in some way: Not at all How difficult have these problems made it for you to do your work, take care of things at home, or get along with other people?: Somewhat difficult Total Score: 9 COPD Knowledge Test Discharge COPD is a lung disease that:: Makes it hard to breathe & gets worse over time In the [place] the term COPD describes 2 main lung conditions:: Emphysema & chronic bronchitis The most common lung irritant that causes COPD is:: Cigarette smoke Common signs and symptoms of COPD include:: An ongoing cough/cough that produces a large amount of mucus, & SOB If you have COPD, what steps can you take?: All of the above Swelling of the ankles is common in COPD:: False Fatigue [tiredness] is common in COPD:: True Wheezing is common in COPD:: True Crushing chest pain is common in COPD:: False Rapid weight loss is common in COPD:: False Breathlessness is a normal response to exercise: True Exercise should be avoided if it makes you short of breath: False All bronchodilators act within 10 minutes: False A spacer device increases the medication to the lungs: True Annual flu vaccine is recommended for pts w/lung disease: True COPD Knowledge Test Total Score:: 15 COPD Assessment Test [CAT] - Questions Never cough = 0, Cough all the time = 5: 0 No phlegm = 0, Chest full of phlegm = 5: 1 No chest tightness = 0, Chest very tight = 5: 0 No breathless w/exertion = 0, Very breathless w/exertion = 5: 5 No limitations w/activity = 0, Very limited w/activity = 5: 4 Confident leaving home = 0, Not at all confident = 5: 1 Sleep soundly = 0, Don't sleep soundly = 5: 0 Lots of energy = 0, No energy at all = 5: 2 Total CAT score:: 13 Nutrition Survey - Nutrition Survey Instructions Scoring Instructions: Scoring is as follows: Yes = 1 points. No = 0 point. Patient score that is >/=12 is considered to be at potential nutritional risk and could benefit from a referral to a registered dietitian. - Nutrition Survey Discharge Have you lost >10 lbs over the past 2 months without trying?: No Are you following a special diet at home for diabetes, low fat, or low salt?: No Are you interested in meeting with a dietitian for help understanding your diet? : No Do you eat less than 3 meals a day?: Yes Do you eat fatty meats (otto, sausage, ribs, etc), fried foods, desserts, large amounts of salad dressings, margarine, butter, or cheese most days?: Yes Do you have food allergies? [Enter types in comment field]: No Do you eat in restaurants more than 3 times a week?: No Do you season food with salt, seasoning salt, or garlic salt?: Yes Do you used canned, boxed, frozen meals, or soups, seasoning packets?: Yes Total Score:: 4
== END 2018-01-06 23:59 ==
LOC: PR 10:15
PROVIDERS: Family Provider Family Medicine; PCP Family Medicine; Visit Provider Internal Medicine Critical Care Medicine
DX: J44.9 Chronic obstructive pulmonary disease, unspecified (principal)
CPT/HCPCS: 97150; G0424

== ENCOUNTER → 2018-01-22 07:41 | Outpatient (CLI) | payer MEDICARE, SELFPAY ==
--- NOTE | 2018-01-22 07:43 | CT_ITS ---
STUDY: CT SOFT TISSUE NECK WITH CONTRAST REASON FOR EXAM: Female, 72 years old. Pulmonary nodule follow up, left neck lump x 2 weeks. Hx diabetes, hypertension. RADIATION DOSAGE (If Supplied By Facility): CTDIvol = ( 20.99 ) mGy, DLP = ( 1558.77 ) mGycm TECHNIQUE: The patient was scanned in a multi-detector CT scanner. High resolution transaxial imaging was performed following intravenous administration of 100mL ml of Isovue 300 contrast material. Sagittal and coronal images were reconstructed. Individualized dose optimization techniques were used for this CT. COMPARISON: None. FINDINGS: Normal bilateral parotid glands. Normal bilateral dental specialist spaces. Normal bilateral parapharyngeal spaces. Normal bilateral carotid spaces. Normal bilateral sublingual and submandibular glands and spaces. There is borderline enlargement of the left submandibular lymph nodes level 1B the largest lymph node measures 9 mm. Normal visualized nasopharynx. Normal retropharyngeal space. Normal perivertebral space. Normal visualized bilateral faucial tonsils. The visualized tongue, tongue base and oropharynx are normal. There is borderline enlargement of the left submandibular lymph nodes level 1B the largest lymph node measures 9 mm. The remaining cervical lymph nodes (levels I-) are within normal size limits, and maintain normal morphology. There is no demonstrated solid or cystic mass lesion. There is no abnormal contrast enhancement. Normal epiglottis, bilateral vallecula and hypopharynx. The pre-epiglottic and paraglottic adipose spaces are normal. Normal visualized bilateral piriform sinuses, aryepiglottic folds, vocal cords, and arytenoid-cricoid articulations. Normal subglottic trachea. There is nonspecific nodule in the left thyroid lobe measures 1.5 cm. Normal visualized pulmonary apices. Normal visualized paranasal sinuses. Normal visualized cervical spine. CT/Soft Tissue Neck WITH Contrast IMPRESSION: There is borderline enlargement of the left submandibular lymph nodes level 1B the largest lymph node measures 9 mm. There is nonspecific nodule in the left thyroid lobe measures 1.5 cm. Electronically Signed: Rakesh Romano MD at 7:08 EDT Tel , Service support ,
--- NOTE | 2018-01-22 07:43 | CT_ITS ---
STUDY: CT CHEST WITH CONTRAST REASON FOR EXAM: Female, 72 years old. Pulmonary nodule follow up, left neck lump x 2 weeks. Hx diabetes, hypertension. RADIATION DOSAGE (If Supplied By Facility): CTDIvol = ( 20.99 ) mGy, DLP = ( 1558.77 ) mGycm TECHNIQUE: Transaxial imaging was performed following intravenous administration of 100mL ml of Isovue 300 contrast material. Individualized dose optimization techniques were used for this CT. COMPARISON: 07/07/2017 FINDINGS: The previously described nodule in the left lung lower lobe is no longer seen. There is focal thickening in the upper part of the major fissure measuring 6.5 mm most likely represents a scar from an old lesion image #32 is stable since the previous study. There is no demonstrated pleural abnormality. Normal heart and pericardium. Normal mediastinum. Normal hilar regions. Normal enhanced pulmonary arteries. Normal aorta arch and descending thoracic aorta. Normal osseous structures. There is a right renal cyst measures 4.6 cm has not significantly changed since the previous study. CT/Chest WITH Contrast IMPRESSION: The previously described nodule in the left lung lower lobe is no longer seen. There is focal thickening in the upper part of the major fissure measuring 6.5 mm most likely represents a scar from an old lesion image #32 is stable since the previous study. Electronically Signed: Rakesh Romano MD at 7:25 EDT Tel , Service support ,
[2018-01-22 08:01] LABS: CREATININE FINGERSTICK 0.7 mg/dL (0.55-1.02); EGFR FINGERSTICK > 60.0000 mL/min (>60)
== END ==
PROVIDERS: Family Provider Family Medicine; PCP Family Medicine; Visit Provider Family Medicine
DX: R91.1 Solitary pulmonary nodule (principal); Z01.812 Encounter for preprocedural laboratory examination
CPT/HCPCS: 70491; 71260; Q9967

== ENCOUNTER → 2018-07-04 11:34 | Outpatient (CLI) | payer MEDICARE, SELFPAY ==
[2018-07-04 12:16] LABS: Base Excess 5 mmol/L (-2 to +2); Bicarbonate 29.2 mmol/L (22-26); Blood Gas Specimen Type ART; O2 Delivery Device Room Air; PO2 62 mmHG (75-100); SITE R Radial; SO2 92 % (95-99); Time Given 1211; Total Carbon Dioxide 31 mmol/L; pCO2 44.5 mmHg (35-45); pH 7.43 (7.35-7.45)
== END ==
PROVIDERS: Family Provider Family Medicine; PCP Family Medicine; Referring Provider Internal Medicine Critical Care Medicine; Visit Provider Internal Medicine Critical Care Medicine
DX: J96.11 Chronic respiratory failure with hypoxia (principal); J96.12 Chronic respiratory failure with hypercapnia
CPT/HCPCS: 36600; 82803

== ENCOUNTER → 2018-07-22 12:07 | Outpatient (CLI) | payer MEDICARE, SELFPAY ==
[2018-07-22 14:14] LABS: Microalbumin,Random Urine 9.8 mg/L (NO RANGE EST.); Microalbumin:Creatinine Ratio 13.1 mg/g CRE (<30 mg/g CRE)
[2018-07-22 14:28] LABS: AST(SGOT) 11 U/L (15-37); Alanine Aminotransfer ALT/SGPT 27 U/L (13-56); Albumin, Serum 3.6 g/dL (3.2-5.0); Alkaline Phosphatase 96 U/L (45-117); Anion Gap 9 (5-15); BUN 19 mg/dL (7-18); BUN/Creat Ratio 26.2 RATIO (10-20); Bilirubin, Direct 0.12 mg/dL (0.00-0.30); Calcium,Total 8.7 mg/dL (8.5-10.1); Chloride 102 mmol/L (98-107); Cholesterol 144 mg/dL (200); Creatinine, Serum 0.72 mg/dL (0.55-1.02); EST Glomerular Filtration Rate 84 mL/min (>60); Est Glom Filt Rate - Afr Amer 102 mL/min (>60); Globulin 4.5 g/dL (2.2-4.2); Glucose 105 mg/dL (74-106); High Density Lipoprotein 43 mg/dL; Protein, Total 8.1 g/dL (6.4-8.2); Sodium Level 138 mmol/L (136-145); Triglycerides 133 mg/dL; Very Low Density Lipoprotein 27 mg/dL (5-40)
== END ==
PROVIDERS: Family Provider Family Medicine; PCP Family Medicine; Visit Provider Family Medicine
DX: E11.9 Type 2 diabetes mellitus without complications (principal)
CPT/HCPCS: 36415; 80048; 80061; 80076; 82043; 82570

== ENCOUNTER → 2019-05-20 10:56 | Outpatient (CLI) | payer MEDICARE, SELFPAY ==
[2018-01-07 00:18] VITALS: BMI 35.1
--- NOTE | 2019-05-20 11:00 | RAD_ITS ---
STUDY: X-RAY - LEFT KNEE REASON FOR EXAM: Bilateral knee pain for 10 years. TECHNIQUE: 4 view(s) of the knee. COMPARISON: Radiographs 04/15/2014. FINDINGS: Normal visualized distal femur. Normal visualized proximal tibia and fibula. Normal proximal tibiofibular articulation. There are marginal osteophytes and severe joint space narrowing of the medial femorotibial compartment increased since the prior study. There are marginal and surface osteophytes of the lateral femorotibial compartment without joint space narrowing. There are small marginal osteophytes and moderate joint space narrowing of the patellofemoral articulation as on the prior study. There is a small enthesophyte at the superior pole of the patella. There is mild vascular calcification. 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 Electronically Signed: Buck Cohen MD at 14:58 EDT Tel , Service support ,
--- NOTE | 2019-05-20 11:00 | RAD_ITS ---
STUDY: X-RAY - RIGHT KNEE REASON FOR EXAM: Bilateral knee pain for 10 years. TECHNIQUE: 4 view(s) of the knee. COMPARISON: Radiographs 06/03/2014. FINDINGS: Normal visualized distal femur. Normal visualized proximal tibia and fibula. Normal proximal tibiofibular articulation. There are marginal osteophytes, a subchondral cyst of the medial tibial plateau and severe joint space narrowing of the medial femorotibial compartment. There are marginal osteophytes and severe joint space narrowing of the lateral femorotibial compartment. There is small marginal osteophytes and moderate joint space narrowing of the patellofemoral articulation. There is vascular calcification. There is a small enthesophyte at the superior pole of the patella. RAD/Knee 4 or More Views IMPRESSION: Tricompartmental arthrosis increasing since 2013. Electronically Signed: Buck Cohen MD at 11:38 EDT Tel , Service support ,
[2019-05-20 12:31] LABS: Hemoglobin A1c 7.2 % (4.2-6.3)
[2019-05-20 12:57] LABS: AST(SGOT) 14 U/L (15-37); Alanine Aminotransfer ALT/SGPT 24 U/L (13-56); Albumin, Serum 3.6 g/dL (3.2-5.0); Alkaline Phosphatase 83 U/L (45-117); Anion Gap 6 (5-15); BUN 22 mg/dL (7-18); BUN/Creat Ratio 24.5 RATIO (10-20); Bilirubin, Direct 0.09 mg/dL (0.00-0.30); Calcium,Total 8.7 mg/dL (8.5-10.1); Chloride 105 mmol/L (98-107); Cholesterol 137 mg/dL (200); EST Glomerular Filtration Rate 65 mL/min (>60); Est Glom Filt Rate - Afr Amer 79 mL/min (>60); Globulin 4.7 g/dL (2.2-4.2); Glucose 150 mg/dL (74-106); High Density Lipoprotein 44 mg/dL; Potassium 4.5 mmol/L (3.5-5.1); Protein, Total 8.3 g/dL (6.4-8.2); Sodium Level 139 mmol/L (136-145); Triglycerides 116 mg/dL; Very Low Density Lipoprotein 23 mg/dL (5-40)
== END ==
PROVIDERS: Family Provider Family Medicine; PCP Family Medicine; Referring Provider Family Medicine; Visit Provider Family Medicine
DX: E11.9 Type 2 diabetes mellitus without complications (principal); M17.12 Unilateral primary osteoarthritis, left knee
CPT/HCPCS: 36415; 73564; 80048; 80061; 80076; 83036

== ENCOUNTER → 2019-08-25 17:37 | Outpatient (CLI) | payer MEDICARE, SELFPAY ==
[2018-01-07 00:18] VITALS: BMI 35.1
--- NOTE | 2019-08-25 17:40 | CT_ITS ---
STUDY: CT ABDOMEN AND PELVIS WITH CONTRAST REASON FOR EXAM: Female, 74 years old. Left lower quadrant pain. RADIATION DOSAGE (If Supplied By Facility): CTDIvol = ( 22.41 ) mGy, DLP = ( 2202.09 ) mGycm TECHNIQUE: Transaxial images were obtained from the dome of the diaphragm to the symphysis pubis with oral contrast. 100 CC ISOVUE 370 was administered. Sagittal and coronal images were reconstructed. Individualized dose optimization techniques were used for this CT. COMPARISON: None. FINDINGS: The visualized lung bases are unremarkable. And there are coronary artery calcifications. There is hepatomegaly with diffuse hepatic enlargement. There is non-visualization of the gallbladder, which may be secondary to either contraction or a prior cholecystectomy. Normal spleen. Normal pancreas. Normal bilateral adrenal glands. Renal cysts measuring up to 4.7 cm on the right. No hydronephrosis.. Normal visualized stomach. Normal small intestine. There are multiple colonic diverticula consistent with diverticulosis. There is non-visualization of the appendix. There is diffuse atherosclerotic calcification of the abdominal aorta, without a demonstrated aneurysm. Normal inferior vena cava. Normal retroperitoneum. Normal urinary bladder. There is atrophy of the uterus. There is no free fluid in the abdomen or pelvis. There is a small umbilical hernia containing fat. Degenerative changes of the spine. Sclerotic regions of thoracic and lumbar vertebra are nonspecific. CT/Abdomen/Pelvis WITH Contrast IMPRESSION: Colonic diverticulosis. No obstruction or abscess. Hepatomegaly. Electronically Signed: Messi Madrigal MD at 22:21 EST , Service support ,
== END ==
PROVIDERS: Family Provider Family Medicine; PCP Family Medicine; Referring Provider Nurse Practitioner Family; Visit Provider Nurse Practitioner Family
DX: K57.30 Diverticulosis of large intestine without perforation or abscess without bleeding (principal); R16.0 Hepatomegaly, not elsewhere classified; R10.32 Left lower quadrant pain
CPT/HCPCS: 74177; Q9967

== ENCOUNTER → 2019-09-07 15:12 | Outpatient (CLI) | payer MEDICARE, SELFPAY ==
[2018-01-07 00:18] VITALS: BMI 35.1
[2019-09-07 18:02] LABS: Absolute Lymphocyte Count 1.99 X10^3/uL (0.83-4.51); Absolute Neutrophil Count 7.6 X10^3/uL (2.0-7.7); Basophil# 0.03 X10^3/uL; Basophil% 0.3 % (0-1); Eosinophil# 0.14 X10^3/uL; Eosinophils% 1.3 % (0-5); Hematocrit 39.5 % (37-47); Hemoglobin 11.9 g/dL (12.0-15.0); Lymphocyte # 1.99 X10^3/ul (4.0); Lymphocyte % 18.6 % (19-41); Mean Corp Hgb Conc 30.1 g/dL (32-36); Mean Corpuscular Hgb 27.6 pg (27.0-32.0); Mean Corpuscular Volume 91.6 fL (81-99); Mean Platelet Vol. 10.2 fl (6.2-12.0); Monocyte# 0.86 X10^3/uL; NRBC Flagged by Analyzer 0 % (0-5); Neutrophil # 7.62 X10^3/uL (2.7-7.7); Neutrophil % 71.1 % (47-70); Platelet Count 319 K/mm3 (150-450); RBC Distribution Width CV 14.6 % (11.6-14.6); RBC Distribution Width SD 49.1 fl (35.1-43.9); Red Blood Count 4.31 M/mm3 (4.2-5.4); White Blood Count 10.7 K/mm3 (4.4-11.0)
[2019-09-07 18:17] LABS: ALB/GLOB Ratio 0.9 RATIO (0.9-2.4); AST(SGOT) 10 U/L (15-37); Alanine Aminotransfer ALT/SGPT 27 U/L (13-56); Albumin, Serum 3.7 g/dL (3.2-5.0); Alkaline Phosphatase 91 U/L (45-117); Anion Gap 6 (5-15); BUN 31 mg/dL (7-18); BUN/Creat Ratio 31.2 RATIO (10-20); Calcium,Total 9.3 mg/dL (8.5-10.1); Chloride 104 mmol/L (98-107); Creatinine, Serum 0.99 mg/dL (0.55-1.02); EST Glomerular Filtration Rate 58 mL/min (>60); Est Glom Filt Rate - Afr Amer 71 mL/min (>60); Globulin 4.3 g/dL (2.2-4.2); Glucose 177 mg/dL (74-106); Potassium 4.3 mmol/L (3.5-5.1); Sodium Level 139 mmol/L (136-145)
== END ==
PROVIDERS: Family Provider Family Medicine; PCP Family Medicine; Visit Provider Family Medicine
DX: Z01.818 Encounter for other preprocedural examination (principal)
CPT/HCPCS: 36415; 80053; 85025

== ENCOUNTER → 2019-09-11 10:34 | Outpatient (CLI) | payer MEDICARE, SELFPAY ==
[2018-01-07 00:18] VITALS: BMI 35.1
[2019-09-11 13:15] LABS: Hemoglobin A1c 8.6 % (4.2-6.3)
== END ==
PROVIDERS: Family Provider Family Medicine; PCP Family Medicine; Referring Provider Physician Assistant Surgical; Visit Provider Physician Assistant Surgical
DX: M17.0 Bilateral primary osteoarthritis of knee (principal); E11.9 Type 2 diabetes mellitus without complications
CPT/HCPCS: 36415; 83036

== ENCOUNTER → 2019-10-08 12:41 | Outpatient (CLI) | payer MEDICARE, SELFPAY ==
[2018-01-07 00:18] VITALS: BMI 35.1
--- NOTE | 2019-10-08 12:49 | VDLE_ITS ---
Reason For Study: edema RIGHT GSV is normal. CFV is compressible, spontaneous, phasic, competent and demonstrates normal augmentation. FV is compressible, spontaneous, phasic, competent and demonstrates normal augmentation. POP V is compressible, spontaneous, phasic, competent and demonstrates normal augmentation. T/P Trunk is compressible. PTV is compressible. RT PerV is compressible. Procedure Exam performed in department. The exam was diagnostic. A preliminary report was called and/or faxed to Christina Sloan. Interpretation Summary Deep veins of the right lower extremity are patent and compressible segmentally. There is no evidence of right lower extremity deep vein thrombosis. Valvular competence appears intact within the proximal deep venous system on the right . The right great saphenous vein appears patent and compressible segmentally. Ordering Physician: Christina Sloan Performed By: Bob Morales RVSergio
== END ==
PROVIDERS: PCP Family Medicine; Referring Provider Nurse Practitioner Family; Visit Provider Nurse Practitioner Family
DX: R60.0 Localized edema (principal)
CPT/HCPCS: 93971

== ENCOUNTER → 2019-10-12 13:29 | Outpatient (CLI) | payer MEDICARE, SELFPAY ==
[2018-01-07 00:18] VITALS: BMI 35.1
--- NOTE | 2019-10-12 13:45 | ECHOCS_ITS ---
Reason For Study: PHTN Procedure This was a 2D Doppler, Color Flow transthoracic echocardiogram. Exam performed in department. Left Ventricle Normal LV size. Left ventricular systolic function is normal. Stage 1 diastolic dysfunction. The estimated ejection fraction is 60 %. No regional wall motion abnormalities noted. Right Ventricle Normal RV size. Normal systolic function. Atria Normal left atrium. Normal right atrium. Mitral Valve There is mild mitral annular calcification. Tricuspid Valve Normal tricuspid valve. Mild tricuspid valve insufficiency. Pulmonary artery systolic pressure is 34 mmHg. Aortic Valve Trisinus/trileaflet aortic valve. Pulmonic Valve Normal pulmonic valve. Great Vessels Normal aortic root. The pulmonary artery is normal size. Normal inferior vena cava. Pericardium/Pleural No pericardial effusion. MMode/2D Measurements & Calculations LVIDd: 4.7 cm IVSd: 1.0 cm Ao root diam: 3.6 cm LVIDs: 2.3 cm LVPWd: 1.1 cm RVDd: 3.2 cm FS: 50.4 % LAV(MOD-bp): 41.4 ml LVAd ap4: 20.0 cm2 SV(MOD-sp4): 32.2 ml LAV(MOD-bp) Indexed: 21.0 ml/m2 EDV(MOD-sp4): 43.3 ml LAV(MOD-sp2): 52.5 ml EDV(sp4-el): 44.7 ml LAV(MOD-sp4): 27.5 ml LVAs ap4: 9.0 cm2 ESV(MOD-sp4): 11.1 ml ESV(sp4-el): 10.5 ml EF(MOD-sp4): 74.4 % EF(sp4-el): 76.5 % SV(sp4-el): 34.2 ml LA A4 area: 13.4 cm2 LA dimension(2D): 3.3 cm RA A4 area: 11.1 cm2 Time Measurements MV dec time: 0.25 sec Doppler Measurements & Calculations MV E max melquiades: 88.0 cm/sec Lat Peak E' Melquiades: 8.3 cm/sec Med Peak E' Melquiades: 6.3 cm/sec MV A max melquiades: 131.2 cm/sec E/E' lat: 10.6 E/E' med: 13.9 MV E/A: 0.67 MV V2 max: 140.3 cm/sec MV P1/2t max melquiades: 100.5 cm/sec Ao V2 max: 177.5 cm/sec MV max P.9 mmHg MV P1/2t: 127.0 msec Ao max P.6 mmHg MV V2 mean: 83.6 cm/sec Ao V2 mean: 123.3 cm/sec MV mean P.1 mmHg MV dec slope: 231.8 cm/sec2 Ao mean P.7 mmHg MV V2 VTI: 44.8 cm MVA(P1/2t): 1.7 cm2 Ao V2 VTI: 38.6 cm LV V1 max: 155.3 cm/sec PA V2 max: 115.5 cm/sec TR max melquiades: 269.3 cm/sec LV V1 max P.6 mmHg TR max P.0 mmHg Interpretation Summary Normal LV size. Left ventricular systolic function is normal. Stage 1 diastolic dysfunction. There is mild mitral annular calcification. The estimated ejection fraction is 60 %. Compared to prior study, there is no significant change. Ordering Physician: Víctor Garsia Referring Physician: Chelsey Watkins Performed By: Keke Lara, CINDY, RVT
== END ==
PROVIDERS: PCP Family Medicine; Referring Provider Internal Medicine Critical Care Medicine; Visit Provider Internal Medicine Critical Care Medicine
DX: I27.23 Pulmonary hypertension due to lung diseases and hypoxia (principal)
CPT/HCPCS: 93306

== ENCOUNTER → 2019-11-03 10:23 | Outpatient (CLI) | payer MEDICARE, SELFPAY ==
[2018-01-07 00:18] VITALS: BMI 35.1
--- NOTE | 2019-11-03 10:24 | BI_ITS ---
MAMMOGRAPHY - BILATERAL SCREENING REASON FOR EXAM: Female, 74 years old. Routine annual screening examination. PERTINENT HISTORY: TECHNIQUE: Digital bilateral breast teresita (3D mammographic acquisition) in the CC and MLO projections. 2-D mediolateral oblique (MLO) and craniocaudad (CC) views of both breasts were obtained. CAD: Full Field Digital Mammography with Computer Added Detection was performed. COMPARISON: None. FINDINGS: Breast Composition: Fatty There are no dominant masses or suspicious calcifications. No other significant abnormalities are identified. 2 stable intramammary lymph nodes are noted in the axillary tail of the right breast. BI/SCREEN MAMM (CAD) W/TERESITA BILAT IMPRESSION: Stable bilateral screening mammogram. Yearly follow-up mammogram recommended. (A) ASSESSMENT CATEGORY: BIRADS Category 1: Negative. A letter regarding these results will be sent to the patient by the facility within 30 days. Approximately 10% of breast cancers are not detected by mammography. A normal mammogram should not delay biopsy of a clinically suspicious abnormality. [id number] Electronically Signed: Ritchie Ignacio, at 17:03 EST Tel , Service support ,
--- NOTE | 2019-11-03 10:30 | BD_ITS ---
STUDY: DUAL ENERGY X-RAY ABSORPTIOMETRY / DXA REASON FOR EXAM: Female, 74 years old. Age of silvestre- 56. Pat is 208# and 62'' a loss of 1.25 and quot; per patient. Past hx of taking thyroid meds. Past hx of taking calcium and multi-vit. Past hx of smoking for 50 years. Type II diabetic on meds. Does not exercise. TECHNIQUE: Bone Mineral Density (BMD) measurements of lumbar spine and bilateral hips were obtained. COMPARISON: None. FINDINGS: Lumbar Spine (L1-L4): g/cm2 (1.040) / T-score (-1.0) / Z-score (0.7) Findings are suggestive of normal bone density with a low fracture risk. Left Femur Total: g/cm2 (0.965) / T-score (-0.3) / Z-score (1.3) Left Femoral Neck: g/cm2 (0.827) / T-score (-1.5) / Z-score (0.3) Right Femur Total: g/cm2 (0.856) / T-score (-1.2) / Z-score (0.4) Right Femoral Neck: g/cm2 (0.831) / T-score (-1.5) / Z-score (0.3) BD/Dexa Bone Density Study IMPRESSION: The patient is considered osteopenic as outlined below according to World [employer] Organization (WHO) criteria with a moderate fracture risk. Reference Information: The T-score is the number of standard deviations above or below the standard which is normal for young adults at their peak bone mineral density. The World Health Organization (WHO) interprets the T-scores as follows: Above -1 Normal bone density Between -1 and -2.5 Osteopenia Equal to / or below -2.5 Osteoporosis As a practical clinical guideline, osteopenia may be graded as follows: Mild -1 through -1.5 Moderate -1.6 through -2.0 Severe -2.1 through -2.4 The Z-score is the number of standard deviations above or below age-matched controls. A Z-score of less than -1.5 would be considered abnormal. References: 1. NIH Osteoporosis and Related Bone Diseases http://www.osteo.org 2. International Society for Clinical Densitometry http://www.iscd.org 3. National Osteoporosis Foundation http://www.nof.org Electronically Signed: Fernando Thompson, at 12:58 EST , Service support ,
== END ==
PROVIDERS: PCP Family Medicine; Referring Provider Nurse Practitioner Family; Visit Provider Nurse Practitioner Family
DX: Z12.31 Encounter for screening mammogram for malignant neoplasm of breast (principal); Z78.0 Asymptomatic menopausal state
CPT/HCPCS: 77063; 77067; 77080

== ENCOUNTER → 2021-02-21 11:47 | Outpatient (CLI) | payer MEDICARE, SELFPAY ==
[2018-01-07 00:18] VITALS: BMI 35.1
[2021-02-21 15:31] LABS: AST(SGOT) 11 U/L (15-37); Alanine Aminotransfer ALT/SGPT 17 U/L (13-56); Albumin, Serum 3.5 g/dL (3.2-5.0); Alkaline Phosphatase 83 U/L (45-117); Anion Gap 5 (5-15); BUN 26 mg/dL (7-18); Bilirubin, Direct 0.14 mg/dL (0.00-0.30); Calcium,Total 9.2 mg/dL (8.5-10.1); Chloride 100 mmol/L (98-107); Cholesterol 139 mg/dL (200); Creatinine, Serum 1.04 mg/dL (0.55-1.02); EST Glomerular Filtration Rate 55 mL/min (>60); Est Glom Filt Rate - Afr Amer 67 mL/min (>60); Globulin 4.9 g/dL (2.2-4.2); Glucose 181 mg/dL (74-106); High Density Lipoprotein 43 mg/dL; Potassium 4.5 mmol/L (3.5-5.1); Protein, Total 8.4 g/dL (6.4-8.2); Sodium Level 135 mmol/L (136-145); Thyroid Stim Hormone (TSH) 1.27 uIU/mL (0.358-3.74); Triglycerides 127 mg/dL; Very Low Density Lipoprotein 25 mg/dL (5-40)
== END ==
PROVIDERS: PCP Family Medicine; Referring Provider Family Medicine; Visit Provider Family Medicine
DX: E11.9 Type 2 diabetes mellitus without complications (principal)
CPT/HCPCS: 36415; 80048; 80061; 80076; 84443

== ENCOUNTER → 2021-08-11 13:48 | Outpatient (CLI) | payer MEDICARE, SELFPAY ==
--- NOTE | 2021-08-11 14:12 | VDLE_ITS ---
Reason For Study: Right leg swelling RIGHT GSV is normal. CFV is compressible, spontaneous, phasic, competent and demonstrates normal augmentation. FV is compressible, spontaneous, phasic, competent and demonstrates normal augmentation. POP V is compressible, spontaneous, phasic, competent and demonstrates normal augmentation. T/P Trunk is compressible. PTV is compressible. RT PerV is compressible. Procedure This is a venous duplex using B-mode, color flow and spectral Doppler. Exam performed in department. FV mid-distal visualized with color only, patient unable to tolerate compression. A preliminary report was called and/or faxed to June. VL/Venous Duplex US, Unilateral Interpretation Summary Deep veins of the right lower extremity are patent and compressible segmentally . There is no evidence of right lower extremity deep vein thrombosis. Valvular competence johnathan ears intact within the proximal deep venous system on the right . The right great saphenous vein a ppears patent and compressible segmentally. Ordering Physician: Chelsey Watkins Referring Physician: Chelsey Watkins M.D. Performed By: Kelly Li RVT
== END ==
PROVIDERS: PCP Family Medicine; Referring Provider Family Medicine; Visit Provider Family Medicine
DX: M79.89 Other specified soft tissue disorders (principal)
CPT/HCPCS: 93971

== ENCOUNTER → 2021-09-15 12:38 | Outpatient (CLI) | payer MEDICARE, SELFPAY ==
[2021-09-15 15:40] LABS: Absolute Lymphocyte Count 2.67 X10^3/uL (0.83-4.51); Absolute Neutrophil Count 6.9 X10^3/uL (2.0-7.7); Basophil# 0.04 X10^3/uL; Basophil% 0.4 % (0-1); Eosinophil# 0.14 X10^3/uL; Eosinophils% 1.3 % (0-5); Hematocrit 41.1 % (37-47); Hemoglobin 12.6 g/dL (12.0-15.0); Lymphocyte # 2.67 X10^3/ul (0.83-4.51); Lymphocyte % 25.1 % (19-41); Mean Corp Hgb Conc 30.7 g/dL (32-36); Mean Corpuscular Hgb 27.3 pg (27.0-32.0); Mean Platelet Vol. 10.1 fl (6.2-12.0); Monocyte# 0.86 X10^3/uL; Monocyte% 8.1 % (0-10); NRBC Flagged by Analyzer 0 % (0-5); Neutrophil # 6.87 X10^3/uL (2.7-7.7); Neutrophil % 64.5 % (47-70); Platelet Count 399 K/mm3 (150-450); RBC Distribution Width CV 14.9 % (11.6-14.6); RBC Distribution Width SD 48.8 fl (35.1-43.9); Red Blood Count 4.62 M/mm3 (4.2-5.4); White Blood Count 10.6 K/mm3 (4.4-11.0)
[2021-09-15 16:08] LABS: ALB/GLOB Ratio 0.7 RATIO (0.9-2.4); AST(SGOT) 11 U/L (15-37); Alanine Aminotransfer ALT/SGPT 24 U/L (13-56); Albumin, Serum 3.6 g/dL (3.2-5.0); Alkaline Phosphatase 80 U/L (45-117); Anion Gap 8 (5-15); BUN 21 mg/dL (7-18); BUN/Creat Ratio 22.9 RATIO (10-20); Calcium,Total 9.5 mg/dL (8.5-10.1); Chloride 99 mmol/L (98-107); Creatinine, Serum 0.92 mg/dL (0.55-1.02); EST Glomerular Filtration Rate 63 mL/min (>60); Est Glom Filt Rate - Afr Amer 77 mL/min (>60); Globulin 4.9 g/dL (2.2-4.2); Glucose 184 mg/dL (74-106); Potassium 4.2 mmol/L (3.5-5.1); Protein, Total 8.5 g/dL (6.4-8.2); Sodium Level 137 mmol/L (136-145)
[2021-09-18 08:43] LABS: Hepatitis B Surface Antibody Non-Reactive
[2021-09-19 07:08] LABS: HEPATITIS B SURFACE AG Negative (Negative); Hepatitis A IgM Antibody Negative (Negative); Hepatitis B Core AB IgM Negative (Negative); QNTFERON TB Mitogen Value > 10.00 IU/mL (.); QNTFERON TB Nil Value 0.01 IU/mL (.); QNTFERON TB1+ Ag Value 0.03 IU/mL (.); QNTFERON TB2+ Ag Value 0.05 IU/mL (.)
[2021-09-19 17:16] LABS: Hep C Antibodies 0.3 s/co ratio (0.0-0.9); Hepatitis A AB, Total Negative (Negative); QNTIFERON TB Positive Criteria Negative (Negative)
== END ==
PROVIDERS: PCP Family Medicine; Referring Provider Dermatology Pediatric Dermatology; Visit Provider Dermatology Pediatric Dermatology
DX: L40.0 Psoriasis vulgaris (principal); L82.1 Other seborrheic keratosis; D18.01 Hemangioma of skin and subcutaneous tissue; I89.0 Lymphedema, not elsewhere classified; L40.1 Generalized pustular psoriasis; Z79.899 Other long term (current) drug therapy
CPT/HCPCS: 36415; 80053; 80074; 85025; 86480; 86706; 86708

== ENCOUNTER → 2022-03-02 | Outpatient (CLI) | payer MEDICARE, SELFPAY ==
[2022-03-02 12:51] LABS: Microalbumin,Random Urine 13.9 mg/L (NO RANGE EST.); Microalbumin:Creatinine Ratio 10.9 mg/g CRE (<30 mg/g CRE)
[2022-03-02 12:55] LABS: AST(SGOT) 9 U/L (15-37); Alanine Aminotransfer ALT/SGPT 19 U/L (13-56); Albumin, Serum 3.5 g/dL (3.2-5.0); Alkaline Phosphatase 78 U/L (45-117); Anion Gap 7 (5-15); BUN 20 mg/dL (7-18); BUN/Creat Ratio 21.1 RATIO (10-20); Bilirubin, Direct 0.13 mg/dL (0.00-0.30); Calcium,Total 9.4 mg/dL (8.5-10.1); Chloride 101 mmol/L (98-107); Cholesterol 125 mg/dL (200); Creatinine, Serum 0.95 mg/dL (0.55-1.02); EST Glomerular Filtration Rate 61 mL/min (>60); Est Glom Filt Rate - Afr Amer 74 mL/min (>60); Globulin 4.6 g/dL (2.2-4.2); Glucose 230 mg/dL (74-106); High Density Lipoprotein 40 mg/dL; Potassium 4.6 mmol/L (3.5-5.1); Protein, Total 8.1 g/dL (6.4-8.2); Sodium Level 136 mmol/L (136-145); Triglycerides 105 mg/dL; Very Low Density Lipoprotein 21 mg/dL (5-40)
== END | disposition home or self-care (01) ==
LOC: MFPLAB 10:45
PROVIDERS: PCP Family Medicine; Referring Provider Family Medicine; Visit Provider Family Medicine
DX: E11.8 Type 2 diabetes mellitus with unspecified complications (principal)
CPT/HCPCS: 36415; 80048; 80061; 80076; 82043; 82570

== ENCOUNTER → 2022-10-16 | Outpatient (CLI) | payer MEDICARE, SELFPAY ==
--- NOTE | 2022-10-16 16:10 | RAD_ITS ---
INDICATION: JAW SWELLING EXAMINATION/TECHNIQUE: X-RAY - XR Mandible Complete Min 4 Views COMPARISON: None. FINDINGS: SOFT TISSUES: No soft tissue swelling or gas. No radiopaque foreign body. BONES/TMJs: No fracture or subluxation. No sclerotic or destructive changes observed. DENTITION: No acute abnormality. RAD/Mandible Min 4 Views IMPRESSION: Negative. Electronically Signed: Quitnin Garcia MD at 21:54 EST ,
== END | disposition home or self-care (01) ==
LOC: MTRAD 16:03
PROVIDERS: PCP Family Medicine; Referring Provider Family Medicine; Visit Provider Family Medicine
DX: R22.0 Localized swelling, mass and lump, head (principal)
CPT/HCPCS: 70110

== ENCOUNTER → 2022-10-17 | Outpatient (CLI) | payer MEDICARE, SELFPAY ==
--- NOTE | 2022-10-17 11:57 | BI_ITS ---
MAMMOGRAPHY - BILATERAL SCREENING REASON FOR EXAM: Female, 77 years old. Routine annual screening examination. PERTINENT HISTORY: Non-contributory. TECHNIQUE: Digital bilateral breast dorys (3D mammographic acquisition) in the CC and MLO projections. 2-D mediolateral oblique (MLO) and craniocaudad (CC) views of both breasts were obtained. CAD: Full Field Digital Mammography with Computer Added Detection was performed. COMPARISON: Comparison is made with prior study dated 11/03/2019 and 01/28/2015. FINDINGS: Breast Composition: The breasts are almost entirely fatty. There are no dominant masses or suspicious calcifications. Stable small benign-appearing bilateral axillary lymph nodes. No other significant abnormalities are identified. There has been no significant change since the prior study. BI/SCREENING MAMM (CAD), BILAT IMPRESSION: Stable bilateral screening mammogram. Yearly follow-up mammogram recommended. (A) ASSESSMENT CATEGORY: BIRADS Category 2: Benign. A letter regarding these results will be sent to the patient by the facility within 30 days. Approximately 10% of breast cancers are not detected by mammography. A normal mammogram should not delay biopsy of a clinically suspicious abnormality. [id number] Electronically Signed: Fernando Thompson MD at 12:58 EST ,
== END | disposition home or self-care (01) ==
LOC: OPBI 11:55
PROVIDERS: PCP Family Medicine; Referring Provider Family Medicine; Visit Provider Family Medicine
DX: Z12.31 Encounter for screening mammogram for malignant neoplasm of breast (principal)
CPT/HCPCS: 77067

== ENCOUNTER → 2023-04-16 | Outpatient (CLI) | payer MEDICARE, SELFPAY ==
[2023-04-16 13:28] LABS: AST(SGOT) 13 U/L (15-37); Alanine Aminotransfer ALT/SGPT 23 U/L (13-56); Albumin, Serum 3.4 g/dL (3.2-5.0); Alkaline Phosphatase 75 U/L (45-117); Anion Gap 9 (5-15); BUN 21 mg/dL (7-18); BUN/Creat Ratio 20.8 RATIO (10-20); Bilirubin, Direct 0.14 mg/dL (0.00-0.30); Calcium,Total 8.7 mg/dL (8.5-10.1); Chloride 101 mmol/L (98-107); Cholesterol < 50 mg/dL (200); Creatinine, Serum 1.01 mg/dL (0.55-1.02); EST Glomerular Filtration Rate 57 mL/min (>60); Est Glom Filt Rate - Afr Amer 68 mL/min (>60); Globulin 4.5 g/dL (2.2-4.2); Glucose 177 mg/dL (74-106); High Density Lipoprotein 25 mg/dL; Protein, Total 7.9 g/dL (6.4-8.2); Sodium Level 137 mmol/L (136-145); Triglycerides 160 mg/dL; Very Low Density Lipoprotein 32 mg/dL (5-40)
== END | disposition home or self-care (01) ==
LOC: MFPLAB 11:07
PROVIDERS: PCP Family Medicine; Visit Provider Family Medicine
DX: E11.9 Type 2 diabetes mellitus without complications (principal); E78.5 Hyperlipidemia, unspecified
CPT/HCPCS: 36415; 80048; 80061; 80076

== ENCOUNTER → 2023-04-18 | Outpatient (CLI) | payer MEDICARE, SELFPAY ==
--- NOTE | 2023-04-18 16:49 | CT_ITS ---
STUDY: CT ABDOMEN AND PELVIS WITH CONTRAST REASON FOR EXAM: Female, 77 years old. Abdominal wall mass. Umbilical hernia. RADIATION DOSAGE (If Supplied By Facility): CTDIvol = ( 18.12 ) mGy, DLP = ( 1164.38 ) mGy TECHNIQUE: Transaxial images were obtained from the dome of the diaphragm to the symphysis pubis with oral contrast. Oral and amp; IV Read i-CAT and amp; 100mL Isovue-370 was administered. Sagittal and coronal images were reconstructed. Individualized dose optimization techniques were used for this CT. COMPARISON: Comparison is made with prior study dated August 25, 2019. FINDINGS: The visualized lung bases are unremarkable. Coronary artery calcification. There is decreased attenuation of the liver consistent with steatosis. Mild hepatomegaly. The patient is status post cholecystectomy. Normal spleen. Normal pancreas. Normal bilateral adrenal glands. There is a 4.7 cm x 3.9 cm cyst in the upper posterior aspect of the right kidney. 1 cm cyst in the superior posterior aspect of the left kidney. Normal visualized stomach. Normal small intestine. Normal colon. The patient is status post appendectomy. There is diffuse atherosclerotic calcification of the abdominal aorta and its major visceral branches, without a demonstrated aneurysm. Normal inferior vena cava. Normal retroperitoneum. Diffuse bladder wall thickening although the bladder is not completely distended. A small amount of air is seen in the anterior aspect of the urinary bladder. This is unchanged as compared to prior study. This may be secondary to prior catheterization. If no catheterization has taken place. Fistulous communication should be ruled out. Small umbilical hernia containing nondilated small bowel loops. There are diffuse degenerative changes of the visualized lumbar spine. CT/Abdomen/Pelvis WITH Contrast IMPRESSION: Mild hepatomegaly and fatty infiltration of the liver. Bilateral renal cysts more prominent on the right side. Sigmoid diverticulosis. Umbilical hernia containing nondilated small bowel loop. Diffuse bilateral wall thickening with tiny amount air in the anterior aspect of the urinary bladder as described. Electronically Signed: Fernando Thompson MD at 9:58 EDT ,
== END | disposition home or self-care (01) ==
PROVIDERS: PCP Family Medicine; Referring Provider Family Medicine; Visit Provider Family Medicine
DX: K46.9 Unspecified abdominal hernia without obstruction or gangrene (principal)
CPT/HCPCS: 74177; Q9967

== ENCOUNTER 2023-06-06 06:20 | Day surgery (SDC) | payer MEDICARE, SELFPAY ==
[2023-06-06] VITALS (7 sets, daily range): BP systolic 110–158; BP diastolic 49–66; PULSE 67–75; RESP 16; TEMP 36.2–36.4; O2SAT 93–96; BMI 37.9
--- NOTE | 2023-06-06 | COLBX_PTH ---
PATIENT: ARMIDA LEONG LOC: EN U#:[id number] AGE/SX: 78/F ROOM: RE06/06/[address]: Dr. Aaron Sorenson MD : 1945 BED: DIS: 06/06/2023 SPEC #: [id number] RECD: 06/06/23 11:20 STATUS: ARYA RASMUSSENIsabela #: [id number] TOOTIE: 06/06/23 00:[address]: Aaron Sorenson DEPT: SURGICAL PATHOLOGY RECD BY: Ayleen Banda ENTERED: 06/06/23 11:36 SP TYPE: COLON BX OTHR DR: Dr. Chelsey Watkins MD Tissues: A - Sigmoid colon biopsy B - Sigmoid colon biopsy C - Sigmoid colon biopsy D - Rectum, NOS E - Rectum, NOS Procedures: Surgery Specimen Level IV HEADER OPERATION: Colonoscopy, polypectomy PRE-OP DIAGNOSIS: Positive Cologuard TISSUE SUBMITTED: A - Sigmoid polyp snare and biopsy, B - Distal sigmoid polyp biopsy, C - Distal sigmoid polyps (x2) biopsy #2, D - Rectal nodule biopsy, E - Rectal polyps (x2) snare and biopsy MICROSCOPIC DIAGNOSIS A. Sigmoid polyp, snare and biopsy: Fragments of hyperplastic polyp. B. Distal sigmoid polyp, biopsy: Hyperplastic polyp. C. Distal sigmoid polyps (x2), biopsy #2: Fragments of hyperplastic polyp. D. Rectal nodule, biopsy: Fragments of hyperplastic polyp. E. Rectal polyps (x2), snare and biopsy: Fragments of hyperplastic polyp. SJ:tina 06/07/2023 MICROSCOPIC DESCRIPTION Slides are reviewed. GROSS DESCRIPTION A - Received in fixative is one container labeled with the patient's name and designated sigmoid polyp biopsy. The specimen consists of multiple irregular fragments of light camacho soft tissue that in aggregate measure 2.0 x 0.8 x 0.1 cm. The specimen is totally submitted in one cassette. B - Received in fixative is one container labeled with the patient's name and designated distal sigmoid biopsy. The specimen consists of two irregular fragments of light camacho soft tissue that in aggregate measure 0.6 x 0.6 x 0.1 cm. The specimen is totally submitted in one cassette. C - Received in fixative is one container labeled with the patient's name and designated sigmoid polyp biopsy. The specimen consists of multiple irregular fragments of light camacho soft tissue that in aggregate measure 1.0 x 0.3 x 0.1 cm. The specimen is totally submitted in one cassette. D - Received in fixative is one container labeled with the patient's name and designated rectal nodule biopsy. The specimen consists of multiple irregular fragments of light camacho soft tissue that in aggregate measure 2.0 x 0.5 x 0.1 cm. The specimen is totally submitted in one cassette. E - Received in fixative is one container labeled with the patient's name and designated rectal polyps. The specimen consists of multiple irregular fragments of light camacho soft tissue that in aggregate measure 1.0 x 0.6 x 0.1 cm. The specimen is totally submitted in one cassette. / AM:tina 06/06/2023 TC:1 CPT: 36951 x5
[2023-06-06] MEDS: Lactated Ringers 1,000 ML 15 ML IV (06:30)
--- NOTE | 2023-06-06 07:26 | PCM.HP.BLA ---
History and Physical Date of Service: 05/01/23 MR#: [id number] Acct: [id number] Name: ARMIDA LEONG Rep #: [id number] : 1945 Provider: Dr. Aaron Sorenson MD Age/Sex: 77/F Location: [facility] Status: Signed Intake Vital Signs 05/01/2310:29 Height 5 ft 2 in Weight: 217 lb 8 oz BMI 39.7 BP 168/68 H Blood Pressure Location Rt brachial Position Sitting Respiration 20 H Pulse 78 Pulse Source Monitor Temp 97 F L Temp Source Tympanic Pulse Oximetry (%) 90 Oxygen Delivery Method room air Intake Visit Reasons: POSITIVE COLOGUARD / POSSIBLE HERNIA Chief Complaint: POSITIVE COLOGUARD Allergies No Known Allergies Allergy (Verified 05/01/23 10:31) Medications lisinopril 20 mg tablet 20 mg PO DAILY 03/05/17 [History Confirmed 05/01/23] metformin 500 mg tablet 500 mg PO BID 03/05/17 [History Confirmed 05/01/23] simvastatin 20 mg tablet 20 mg PO DAILY 03/05/17 [History Confirmed 05/01/23] verapamil 200 mg capsule 24hr pellet CT,ext.release 200 mg DAILY 03/05/17 [History Confirmed 05/01/23] Oxygen, Home [Home Oxygen] 2 - 4 lpm 10/15/17 [History Confirmed 05/01/23] albuterol sulfate 1.25 mg/3 mL solution for nebulization 1.25 mg IH 10/15/17 [History Confirmed 05/01/23] glipizide 5 mg tablet 5 mg PO DAILY 05/01/23 [History Confirmed 05/01/23] PFSH Medical History (Updated 05/01/23 @ 18:[address] Aaron Sorenson MD) Bladder cancer COPD (chronic obstructive pulmonary disease) Surgical History (Updated 05/01/23 @ 10:28 by Rosangela Austin) H/O colectomy History of appendectomy Family History (Updated 05/01/23 @ 10:29 by Rosangela Austin) Mother ArthritisFather Hypertension Heart disease Diabetes Social History Smoking Status: Smoker, status unknown HPI HPI HPI: Patient is a 77-year-old female who presents for need to schedule diagnostic colonoscopy secondary to positive Cologuard. They are referred for surgical consultation from Dr. Watkins. Patient has not had prior colonoscopy. She also states this was her first Cologuard testing. Patient has no personal history of colon cancer, inflammatory bowel disease, or diverticulitis. However, she reports recent meeting with Dr. Marmolejo and being told that there is a strong suspicion for bladder cancer. She is pending diagnostic cystoscopy next week to characterize this area further. Additionally, there is some concern for a enterovesicular fistula based on the finding of air in the bladder on CT imaging. They describe their bowel habits as generally normal. They have approximately 1 per day and spend roughly 2 to 3 minutes on the toilet with occasional significant straining. They have not noticed recent bleeding or dark stools. Patient has a family history of cancer in her mother and brother, however her ability to provide details is somewhat compromised and she struggles for recall. The patient's weight is stable. The patient is not prescribed anticoagulants/blood thinners (although she initially reports that she is). Relevant prior abdominal surgical history includes: Perforated appendix removed at the age of 15, cholecystectomy via laparotomy at the age of 41. Patient does not have a significant history of GERD and reports only occasional heartburn. Patient carries diagnoses of COPD (on home O2 at night) and diabetes mellitus (last A1c reportedly 7.5). Patient also presents with concerns of a abdominal hernia. She believes this hernias been present for the last year and states that it scares her. She denies any significant pain or growth from the area. She reports that it bulges out like a tangerine when she is about to have a bowel movement. She also notes that the other night it got hard like a marble. She denies any increased pain with this finding or any absence of bowel function/presence of nausea. Patient underwent CT imaging prior to today's visit and radiology did remark of bladder wall thickness as well as air within the bladder. They described a abdominal wall hernia containing nondilated small bowel. ROS General General: Yes colon cancer; No weight change, appetite, fatigue, breast cancer or weakness HEENT HEENT: Yes eye injury and eye surgery; No difficulty swallowing, swollen glands or hoarseness Endo Endocrine: Yes thyroid disease and diabetes mellitus; No thyroid cancer, Hair loss, heat intolerance or cold intolerance Skin Skin: No rash or changing moles Breast Breast: No left breast lump, right breast lump, nipple discharge, breast pain, abnormal mammogram, abnormal US or breast enlargement Musc Musculoskeletal: Yes back problems and arthritis; No rheumatoid arthritis or joint pain Cardio Cardiovascular: Yes high blood pressure; No murmur, pacemaker, heart disease, atrial fibrillation, heart attack, heart stent, palpitations, shortness of breat with exertion or chest pain Psych Psychiatric: No depression, anxiety or hearing voices Resp Respiratory: Yes shortness of breath, Yes sleep apnea, No cough, Yes COPD, Yes asthma, No emphysema and No wheezing Gastro Gastrointestinal: Yes abdominal pain, No nausea or vomiting, No diarrhea, No constipation, No blood in stool, No acid reflux, No hemorrhoids, No ulcers, No gallbladder problem and No black,tarry stools Lloyd Hematologic: Yes blood thinners, No blood disorders, No bleeding, No anemia and No blood clots Neuro Neurologic: No system reviewed and no additional complaints, except as documented, No as per HPI, No abnormal gait, No abnormal hearing, No abnormal movements, No abnormal speech, No behavioral changes, No burning sensations, No confusion, No convulsions, No disequilibrium, No dizziness, No localized weakness, No frequent falls, No headache(s), No lack of coordination, No loss of vision, No memory loss, No numbness, No other visual disturbances, No radicular pain, No restless legs, No sensory deficit, No syncope, No tingling, No tremor(s), No weakness and No other Exam Const General: frail appearing Nutritional Appearance: obese and edeamtous Orientation: alert Resp Other: Somewhat labored breathing with minimal activity GI Other: Laparotomy incision extending the full length of the patient's abdomen is well-healed. More medially there is a umbilical hernia that measures 4 cm and is reducible to the fascia. Patient has mild tenderness of this area. There is mild skin thinning over this area. Assessment and Plan Assessment and Plan (1) Positive colorectal cancer screening using Cologuard test: Status: Acute Comment: This is a 77-year-old female with no prior endoscopic history who presents with positive Cologuard testing. She has no abnormalities to her bowels as reported in her history. She does not appear to be at increased risk for colorectal cancer. Still, given her positive Cologuard testing I agree with the recommendation to pursue diagnostic colonoscopy. I have described to her that this could be completed in the next 4 weeks with a 2-day bowel prep. She is already under work-up for possible bladder cancer. It is fine that this takes precedence. Plan: ? Plan will be to complete colonoscopy on first mutually agreeable date under local MAC. Pre-procedure prep discussed and paper instructions provided. Patient is also made aware that she will need to have a sales warehouse driver with her the day of the procedure. (2) Umbilical hernia without obstruction and without gangrene: Status: Acute Comment: Patient with reducible umbilical hernia that measures 4 cm at the fascia both on CT imaging and on exam. I have shared with patient her original CT imaging. She does not have any history of obstructive symptomology. Patient states that she is simply scared by the hernia and it does not cause her any pain. I am concerned about her operative risk both from a medical standpoint as well as a risk for recurrence. With her comorbidities of diabetes and COPD on oxygen I am concerned about her wound healing capabilities. Further, she appears severely deconditioned on the account of her severe osteoarthritis. Lastly I question whether or not she will require additional abdominal surgery depending on the findings of the upcoming cystoscopy and possible bladder fistula. I would not want to perform an elective repair of her umbilical hernia only to have this followed by a repeat laparotomy and division of the place mesh. Therefore I recommend watchful waiting at this time, but could consider a minimally invasive umbilical hernia repair with mesh in the future. I have examined the patient and the H&P has been reviewed. There are no clinical changes since date of exam. Patient has several questions related to her breathing under sedation as well as possibility of her hernia trapping the endoscope. After these were answered patient denied further questions and I confirmed that her prep proceeded successfully yesterday. Therefore we will proceed to the endoscopy suite for planned diagnostic colonoscopy given recently positive Cologuard testing.
[2023-06-06 08:57] LABS: Bedside Glucose 189 mg/dL (74-106)
--- NOTE | 2023-06-06 09:08 | OP.COLON_ITS ---
Patient Name: Suyapa Guillaume Procedure Date: 06/06/2023 7:15 AM Date of : 1945 Age: 78 Procedure: Colonoscopy Indications: Positive Cologuard test Providers: Aaron Sorenson MD Referring MD: Chelsey Watkins Medicines: See the Anesthesia note for documentation of the administered medications Patient Profile: Refer to note in patient chart for documentation of history and physical. Last Colonoscopy: none. The patient's first colonoscopy is today. Complications: No immediate complications. Estimated blood loss: Minimal. Procedure: Pre-Anesthesia Assessment: - The heart rate, respiratory rate, oxygen saturations, blood pressure, adequacy of pulmonary ventilation, and response to care were monitored throughout the procedure. After I obtained informed consent, the scope was passed under direct vision. Throughout the procedure, the patient's blood pressure, pulse, and oxygen saturations were monitored continuously. The Colonoscope was introduced through the anus and advanced to the cecum, identified by palpation. The colonoscopy was somewhat difficult due to collapsibility of colon. Successful completion of the procedure was aided by prevention of loss of insufflation. The patient tolerated the procedure well. The quality of the bowel preparation was adequate to identify polyps greater than 5 mm in size. Anatomical landmarks were photographed. Scope In: 7:40:01 AM Scope Withdrawal Time 1 hour 4 minutes 42 seconds Scope Out: 8:54:55 AM Total Procedure Duration Time 1 hour 14 minutes 54 seconds Findings: Many small and large-mouthed diverticula were found in the sigmoid colon. No biopsies or other specimens were collected for this exam. Four semi-sessile, non-bleeding polyps were found in the sigmoid colon. The polyps were 5 mm in size. Biopsies were taken with a cold forceps for histology. These polyps were removed with a hot snare. Resection was complete, and retrieval was complete. Estimated blood loss was minimal. Two 5 mm mucosal nodules were found in the rectum. Biopsies were taken with a cold forceps for histology. Estimated blood loss was minimal. A 5 mm, non-bleeding polyp was found in the rectum. The polyp was semi-pedunculated. The polyp was removed with a hot snare. Resection and retrieval were complete. Estimated blood loss was minimal. Skin tags were found on perianal exam. Impression: - Diverticulosis in the sigmoid colon. No specimens collected. - Four 5 mm, non-bleeding polyps in the sigmoid colon, removed with a hot snare. Resected and retrieved. Biopsied. - Mucosal nodule in the rectum. Biopsied. - One 5 mm, non-bleeding polyp in the rectum, removed with a hot snare. Resected and retrieved. - Perianal skin tags found on perianal exam. Recommendation: - Discharge patient to home (via wheelchair). - High fiber diet today. - Continue present medications. - Await pathology results. - Repeat colonoscopy date to be determined after pending pathology results are reviewed for surveillance based on pathology results. - Telephone my office for pathology results in 1 week. Procedure Code(s): --- Professional --- 05746, Colonoscopy, flexible; with removal of tumor(s), polyp(s), or other lesion(s) by snare technique 90656, 59, Colonoscopy, flexible; with biopsy, single or multiple Diagnosis Code(s): --- Professional --- D12.5, Benign neoplasm of sigmoid colon K62.89, Other specified diseases of anus and rectum D12.8, Benign neoplasm of rectum K64.4, Residual hemorrhoidal skin tags R19.5, Other fecal abnormalities K57.30, Diverticulosis of large intestine without perforation or abscess without bleeding CPT copyright 2021 [employer]. All rights reserved. The codes documented in this report are preliminary and upon web operations administrator review may be revised to meet current compliance requirements. Aaron Sorenson MD 06/06/2023 9:07:38 AM This report has been signed electronically. Number of Addenda: 0 Note Initiated On: 06/06/2023 7:15 AM
--- NOTE | 2023-06-06 09:08 | OP.CCLET_ITS ---
06/06/2023 Chelsey Watkins [address] [place] [address] Re : Colonoscopy procedure for Suyapa Aundrea Dear Dr. Watkins This procedure was performed on May. My impressions and recommendations are as follows: Impressions : - Diverticulosis in the sigmoid colon. No specimens collected. - Four 5 mm, non-bleeding polyps in the sigmoid colon, removed with a hot snare. Resected and retrieved. Biopsied. - Mucosal nodule in the rectum. Biopsied. - One 5 mm, non-bleeding polyp in the rectum, removed with a hot snare. Resected and retrieved. - Perianal skin tags found on perianal exam. Recommendations : - Discharge patient to home (via wheelchair). - High fiber diet today. - Continue present medications. - Await pathology results. - Repeat colonoscopy date to be determined after pending pathology results are reviewed for surveillance based on pathology results. - Telephone my office for pathology results in 1 week. My findings are described in the full procedure note, which is enclosed. If I can be of further assistance, please feel free to contact me at Doctor phone number(s): , Work: . Sincerely, Aaron Sorenson MD 06/06/2023 9:07:38 AM This report has been signed electronically.
== END 2023-06-06 09:59 | disposition home or self-care (01) ==
LOC: EN 06:21 → AC 06:22
PROVIDERS: PCP Family Medicine; Referring Provider Family Medicine; Visit Provider Surgery
PROC: 0DJD8ZZ Inspection of Lower Intestinal Tract, Via Natural or Artificial Opening Endoscopic (ICD-10-PCS; CPT 45378; principal; 2023-06-06 07:25)
DX: K63.5 Polyp of colon (principal); E11.9 Type 2 diabetes mellitus without complications; R19.5 Other fecal abnormalities; K57.30 Diverticulosis of large intestine without perforation or abscess without bleeding; Z79.84 Long term (current) use of oral hypoglycemic drugs; Z85.51 Personal history of malignant neoplasm of bladder; Z90.49 Acquired absence of other specified parts of digestive tract; K42.9 Umbilical hernia without obstruction or gangrene; K64.4 Residual hemorrhoidal skin tags; K62.89 Other specified diseases of anus and rectum; K62.1 Rectal polyp
CPT/HCPCS: 45380; 45384; 82962; 88305; J7120

== ENCOUNTER → 2023-09-16 | Outpatient (CLI) | payer MEDICARE, SELFPAY ==
--- NOTE | 2023-09-16 13:54 | ECHOCS_ITS ---
Reason For Study: PHTN Procedure This was a 2D Doppler, Color Flow transthoracic echocardiogram. Very technically difficult study. Patient scanned sitting upright in the bed due to hip pain. Contrast injecction was performed. Exam performed in department. Left Ventricle Normal LV size. Left ventricular systolic function is normal. The estimated ejection fraction is 65 %. Stage 1 diastolic dysfunction. No regional wall motion abnormalities noted. Right Ventricle Normal RV size. Normal systolic function. Atria Normal left atrium. Normal right atrium. Mitral Valve Normal mitral valve. Tricuspid Valve Normal tricuspid valve. Aortic Valve Trisinus/trileaflet aortic valve. Pulmonic Valve Normal pulmonic valve. Great Vessels Normal aortic root. The pulmonary artery is normal size. Normal inferior vena cava. Pericardium/Pleural No pericardial effusion. Medication 22 gauge I.V. with prn adaptor inserted into right arm. Diluted definity 3ml given slow IV push to enhance endocardial definition. MMode/2D Measurements & Calculations LVIDd: 4.1 cm IVSd: 1.1 cm Ao root diam: 3.1 cm LVIDs: 2.9 cm LVPWd: 1.3 cm LA dimension: 3.9 cm RVDd: 4.0 cm FS: 28.2 % LAV(MOD-sp4): 52.3 ml LVAd ap4: 29.9 cm2 SV(MOD-sp4): 59.8 ml LVLd ap4: 8.1 cm EDV(MOD-sp4): 90.7 ml EDV(sp4-el): 93.5 ml LVAs ap4: 15.7 cm2 LVLs ap4: 6.8 cm ESV(MOD-sp4): 30.9 ml ESV(sp4-el): 30.9 ml EF(MOD-sp4): 65.9 % EF(sp4-el): 67.0 % SV(sp4-el): 62.6 ml LA A4 area: 21.1 cm2 RA A4 area: 15.7 cm2 TAPSE: 2.1 cm Time Measurements MV dec time: 0.48 sec Doppler Measurements & Calculations MV E max melquiades: 81.5 cm/sec Lat Peak E' Melquiades: 8.2 cm/sec Med Peak E' Melquiades: 4.8 cm/sec MV A max melquiades: 134.8 cm/sec E/E' lat: 9.9 E/E' med: 17.0 MV E/A: 0.60 MV V2 max: 128.6 cm/sec MV P1/2t max melquiades: 97.9 cm/sec Ao V2 max: 164.1 cm/sec MV max P.6 mmHg MV P1/2t: 161.4 msec Ao max P.8 mmHg MV V2 mean: 68.6 cm/sec MV mean P.2 mmHg MV dec slope: 177.7 cm/sec2 MV V2 VTI: 40.6 cm MVA(P1/2t): 1.4 cm2 LV V1 max: 147.5 cm/sec PA V2 max: 102.8 cm/sec LV V1 max P.7 mmHg ECHO/Echo Complete W/ Contrast Interpretation Summary Normal LV size. Left ventricular systolic function is normal. The estimated ejection fraction is 65 %. Stage 1 diastolic dysfunction. Contrast injection was performed. Ordering Physician: Víctor Garsia Referring Physician: Víctor Garsia Performed By: Alistair Burns RCS
== END | disposition home or self-care (01) ==
LOC: CVS 13:52
PROVIDERS: PCP Family Medicine; Referring Provider Internal Medicine Critical Care Medicine; Visit Provider Internal Medicine Critical Care Medicine
DX: I27.23 Pulmonary hypertension due to lung diseases and hypoxia (principal)
CPT/HCPCS: 93306; Q9957; A4216; C8929

== ENCOUNTER → 2024-04-29 | Outpatient (CLI) | payer MEDICARE, SELFPAY ==
--- NOTE | 2024-04-29 13:51 | CT_ITS ---
STUDY: LOW DOSE CT LUNG CANCER SCREENING REASON FOR EXAM: Female, 78 years old. screening for lung cancer RADIATION DOSAGE (If Supplied By Facility): CTDIvol = ( 4.02 ) mGy, DLP = ( 123.35 ) mGycm TECHNIQUE: No contrast was administered. Low dose technique was utilized (average mAS-38 and kVp 120). 1.25 mm axial source images with a slice interval of 1.25-mm were reconstructed in lung windows. 2.5 mm axial source images with a slice interval of 2.5-mm were reconstructed in lung windows. 5.0 mm axial source images with a slice interval of 5.0-mm were reconstructed in soft tissue windows. COMPARISON: Comparison is made with prior study dated January 22, 2018. NODULES: Stable 2 mm nodule in the posterior aspect of the left upper lobe abutting the left major fissure. This is seen on axial image #57. There has been no change. Emphysema: Increased markings at the lung bases. This is essentially unchanged most likely than scarring. There is also evidence of scarring in the posterior aspect of the lingular segment of the left upper lobe abutting the left major fissure. Endobronchial lesion: None Aorta: Atherosclerotic plaque formation. CORONARY ARTERIES: Coronary artery calcification is seen. Heart: Unremarkable Pulmonary artery: Unremarkable Mediastinal nodes: Unremarkable Other chest and abdominal findings: Stable heterogeneous enlargement of the thyroid gland. CT/Low Dose CT Lung Screening IMPRESSION: Lung-RADS category 2 - Continue annual screening with LDCT in 12 months. IMPORTANT NOTES FOR USE: ACR Lung-RADS Version 1.1 Assessment Categories Release Date: 2018 Category: Coded 0-4 bases on nodule(s) with highest degree of suspicion. Negative screen is defined as categories 1 and 2; a positive screen is defined as categories 3 and 4. Category 3 and 4A nodules that are unchanged on interval CT should be coded as category 2, and individuals returned to screening in 12 months. Category 4X: Category 3 or 4 nodules with additional imaging findings that increase the suspicion of lung cancer, such as spiculation, GGN that doubles in size in 1 year, enlarged lymph notes, etc. Category Modifiers: S (significant finding unrelated to lung cancer) Electronically Signed: Fernando Thompson MD at 14:36 EDT ,
--- NOTE | 2024-04-29 14:13 | BI_ITS ---
MAMMOGRAPHY - BILATERAL SCREENING REASON FOR EXAM: Female, 78 years old. Routine annual screening examination. PERTINENT HISTORY: Non-contributory. TECHNIQUE: Digital bilateral breast teresita (3D mammographic acquisition) in the CC and MLO projections. 2-D mediolateral oblique (MLO) and craniocaudad (CC) views of both breasts were obtained. CAD: Full Field Digital Mammography with Computer Added Detection was performed. COMPARISON: Comparison is made with prior study dated October 17, 2022 and June 03, 2020. FINDINGS: Breast Composition: The breasts are almost entirely fatty. There are no dominant masses or suspicious calcifications. Stable small bilateral axillary lymph nodes. Stable 5 mm nodule in the upper lateral aspect of the right breast suggestive of a small intramammary lymph node. No other significant abnormalities are identified. There has been no significant change since the prior study. BI/SCRN MAMM (CAD)W/TERESITA BILAT IMPRESSION: Stable bilateral screening mammogram. Yearly follow-up mammogram recommended. (A) ASSESSMENT CATEGORY: BIRADS Category 2: Benign. A letter regarding these results will be sent to the patient by the facility within 30 days. Approximately 10% of breast cancers are not detected by mammography. A normal mammogram should not delay biopsy of a clinically suspicious abnormality. [id number] Electronically Signed: Fernando Thompson MD at 15:19 EDT ,
--- NOTE | 2024-04-29 14:16 | BD_ITS ---
STUDY: DUAL ENERGY X-RAY ABSORPTIOMETRY / DXA REASON FOR EXAM: Female, 78 years old. N95.9 TECHNIQUE: Bone Mineral Density (BMD) measurements of lumbar spine and bilateral hips were obtained. COMPARISON: Comparison is made with prior study dated November 03, 2019. FINDINGS: Lumbar Spine (L1-L4): g/cm2 (1.020) / T-score (0.1) / Z-score (2.5) Findings are suggestive of normal bone density with a low fracture risk. Left Femur Total: g/cm2 (0.981) / T-score (0.3) / Z-score (2.3) Left Femoral Neck: g/cm2 (0.786) / T-score (-0.6) / Z-score (1.6) Right Femur Total: g/cm2 (0.979) / T-score (0.3) / Z-score (2.2) Right Femoral Neck: g/cm2 (0.860) / T-score (0.1) / Z-score (2.3) The T-Scores on the most recent prior examination were: Lumbar Spine (L1-L4): There has been improvement of bone density since the previous examination. Left Femur Total: which represents an improvement of 9.1%. Right Femur Total: which represents an improvement of 23.4%. BD/Dexa Bone Density Study IMPRESSION: The patient is considered normal as outlined below according to World [employer] Organization (WHO) criteria with a low fracture risk. There has been improvement of bone density since the previous examination. Reference Information: The T-score is the number of standard deviations above or below the standard which is normal for young adults at their peak bone mineral density. The World Health Organization (WHO) interprets the T-scores as follows: Above -1 Normal bone density Between -1 and -2.5 Osteopenia Equal to / or below -2.5 Osteoporosis As a practical clinical guideline, osteopenia may be graded as follows: Mild -1 through -1.5 Moderate -1.6 through -2.0 Severe -2.1 through -2.4 The Z-score is the number of standard deviations above or below age-matched controls. A Z-score of less than -1.5 would be considered abnormal. References: 1. NIH Osteoporosis and Related Bone Diseases www osteo.org 2. International Society for Clinical Densitometry www iscd.org 3. National Osteoporosis Foundation www nof.org Electronically Signed: Fernando Thompson MD at 8:23 EDT ,
== END | disposition home or self-care (01) ==
LOC: OPBD 13:48
PROVIDERS: PCP Family Medicine; Referring Provider Family Medicine; Visit Provider Family Medicine
DX: Z12.31 Encounter for screening mammogram for malignant neoplasm of breast (principal); Z12.2 Encounter for screening for malignant neoplasm of respiratory organs; N95.9 Unspecified menopausal and perimenopausal disorder; R91.1 Solitary pulmonary nodule; I25.10 Atherosclerotic heart disease of native coronary artery without angina pectoris; F17.210 Nicotine dependence, cigarettes, uncomplicated
CPT/HCPCS: 71271; 77063; 77067; 77080

== ENCOUNTER → 2024-11-03 | Outpatient (CLI) | payer MEDICARE, SELFPAY ==
[2024-11-03 20:32] LABS: AST(SGOT) 17 U/L (<=31); Alanine Aminotransfer ALT/SGPT 20 U/L (<=34); Albumin, Serum 4.4 g/dL (3.4-4.8); Alkaline Phosphatase 72 U/L (35-104); BUN 29 mg/dL (4-19); BUN/Creat Ratio 30.5 RATIO (10-20); Bilirubin, Direct 0.19 mg/dL (0.00-0.30); Cholesterol 150 mg/dL (<=200); EST Glomerular Filtration Rate 61 (>60); Globulin 3.6 g/dL (2.2-4.2); Glucose 207 mg/dL (70-99); High Density Lipoprotein 45 mg/dL; Protein, Total 7.9 g/dL (5.9-8.4); Total Bilirubin 0.48 mg/dL (0.00-1.30); Triglycerides 185 mg/dL; Very Low Density Lipoprotein 37 mg/dL (5-40)
[2024-11-03 23:33] LABS: Protein, Urine (Random) 13 mg/dL (<=12); Protein:Creat Ratio 226 mg/g CRE (0-200)
[2024-11-04 03:57] LABS: Anion Gap 19 (5-15); Calcium,Total 9.9 mg/dL (7.6-11.0); Carbon Dioxide 22.1 mmol/L (21.0-32.0); Chloride 96 mmol/L (98-107); Sodium Level 137 mmol/L (136-145)
== END | disposition home or self-care (01) ==
LOC: MTLAB 12:38
PROVIDERS: PCP Family Medicine; Referring Provider Family Medicine; Visit Provider Family Medicine
DX: E11.8 Type 2 diabetes mellitus with unspecified complications (principal)
CPT/HCPCS: 36415; 80048; 80061; 80076; 82570; 84156

== ENCOUNTER → 2025-05-14 | Outpatient (CLI) | payer MEDICARE, SELFPAY ==
--- NOTE | 2025-05-14 16:54 | CT_ITS ---
PROCEDURE: LOW DOSE CT LUNG SCREENING 05/14/2025 REASON FOR EXAM: SCREENING TECHNIQUE: Procedure Code: [id number] Modality: CT Procedure: LOW DOSE CT LUNG SCREENING Coronal and Sagittal reconstruction series were provided. One or more dose reduction techniques were used (e.g., Automated exposure control, adjustment of the mA and/or kV according to patient size, use of iterative reconstruction technique). REFERENCE LINK: [employer] Lung-RADS RADIATION DOSE SUMMARY: CTDlvol: 4 mGy DLP: 125.36 mGycm COMPARISON: None FINDINGS: PULMONARY NODULES: (Only nodules >3mm are reported) Pulmonary Nodules: 4.5 mm subpleural nodule in the left upper lobe (image 55). Hardware:None Lymph Nodes:None Heart and Vasculature:Atherosclerosis of the aorta. Prominent appearance of the main pulmonary artery as can be seen in setting of pulmonary arterial hypertension. Coronary arterial calcifications. Heavy calcifications of the aortic leaflets and mitral annulus. No pericardial effusion. Lungs and Airways: Subsegmental atelectasis in the right lower lobe and lingula. No focal consolidation. Lung bases are slightly degraded by motion artifact. v Pleura:No effusion. No pneumothorax. Upper Abdomen:Unremarkable Bones:Multilevel degenerative changes of the spine. No destructive lesion Prominent left thyroid nodule measuring 3.[address]/Low Dose CT Lung Screening IMPRESSION: No suspicious pulmonary nodule over 6 mm. Atelectatic changes of the lung unch anged. Coronary artery calcification (CAC) is is present Lung-RADS Category: 2 BENIGN (BASED ON IMAGING FEATURES OR INDOLENT BEHAVIOR). RECOMMEND 12-MONTH SCREENING LDCT. Other Significant Findings: Atelectatic changes of the lower lobes unchanged. Recommendation: Follow-up routine screening low-dose CT in 12 months Reading Location: [facility]
== END | disposition home or self-care (01) ==
LOC: CT 16:52
PROVIDERS: PCP Family Medicine; Referring Provider Nurse Practitioner Family; Visit Provider Nurse Practitioner Family
DX: Z12.2 Encounter for screening for malignant neoplasm of respiratory organs (principal); Z87.891 Personal history of nicotine dependence
CPT/HCPCS: 71271

== ENCOUNTER → 2025-05-26 | Outpatient (CLI) | payer MEDICARE, SELFPAY ==
--- NOTE | 2025-05-26 17:29 | US_ITS ---
PROCEDURE: THYROID 05/26/2025 REASON FOR EXAM: NODULE TECHNIQUE: Procedure Code: USTHY Modality: US Procedure: THYROID COMPARISON: None FINDINGS: Right thyroid lobe size: 4.6 cm 2 cm 1.9 cm Left thyroid lobe size: 4.9 cm x 2.6 cm 2.8 cm Isthmus: 0.4 cm Background parenchymal echotexture is heterogeneous Nodules: . Lobe: Right, Location: Superior pole, Size: 1.2 cm x 0.9 cm x 0.7 cm, Stability: N/A Composition: Solid or almost completely solid (+2) Echogenicity: Hypoechoic (+2) Margin: Smooth (+0) Shape: Wider than tall (+0) Echogenic Foci: None (+0) TI-RADS: 4 . Lobe: Right, Location: Mid pole, Size: 1 cm x 0.4 cm x 0.7 cm, Stability: N/A Composition: Solid or almost completely solid (+2) Echogenicity: Hypoechoic (+2) Margin: Smooth (+0) Shape: Wider than tall (+0) Echogenic Foci: None (+0) TI-RADS: 4 Complex nodule in the midpole of the left lobe of the thyroid measuring 3.2 cm 2.5 cm x 2.7 cm. TI-RADS category 4 1.5 cm 1.8 cm 1.5 cm solid nodule in the lower pole of the left lobe. TI-RADS category 4. US/Thyroid IMPRESSION: Heterogeneous echotexture of both lobes of the thyroid gland. Multiple nodules seen bilaterally. The largest nodule is in the left lobe of t he thyroid measuring 3.2 cm 2.5 cm 2.7 cm. Biopsy recommended. RECOMMENDATION: Based on most suspicious nodule. Nodule size = largest diameter Only evaluate nodule if =>5 mm. Growth > 20% in 2 dimensions = worsening. Follow up to 4 nodules. Recommend biopsy for no more than 2 nodules. Reading Location: [place] [address]
== END | disposition home or self-care (01) ==
LOC: US 17:27
PROVIDERS: PCP Family Medicine; Referring Provider Nurse Practitioner Family; Visit Provider Nurse Practitioner Family
DX: E04.1 Nontoxic single thyroid nodule (principal)
CPT/HCPCS: 76536; 84439; 84443

== ENCOUNTER → 2025-06-23 | Outpatient (CLI) | payer MEDICARE, SELFPAY ==
--- NOTE | 2025-06-23 08:48 | CYSPIN_PTH ---
PATIENT: ARMIDA LEONG LOC: [facility] U#:[id number] AGE/SX: 80/F ROOM: RE06/23/[address]: Dr. Aaron Sorenson MD : 1945 BED: DIS: 06/23/2025 SPEC #: [id number] RECD: 06/23/25 10:25 STATUS: ARYA REIsabela #: [id number] TOOTIE: 06/23/25 08:[address]: Aaron Sorenson DEPT: CYTOLOGY RECD BY: Jason Montes ENTERED: 06/23/25 10:43 SP TYPE: CYSPIN FL OTHR DR: Edu Figueroa MD Tissues: A - Thyroid gland, NOS B - Thyroid gland, NOS C - Thyroid gland, NOS Procedures: Pap Stain (control) Special Stain Group II Diff Quik Stain (control) Cytospin Fluid Cytology Other HEADER OPERATION: Fine needle aspiration of left thyroid nodules PRE-OP DIAGNOSIS: Left thyroid nodules TISSUE SUBMITTED: A- Left mid pole thyroid nodule, B- Left inferior thyroid nodule, C- Left thyroid cyst aspirate DIAGNOSIS CYTOLOGY A. Left thyroid, mid-pole nodule, FNA (cytospin, smear x4): * Nondiagnostic. * Insufficient cellularity. B. Left thyroid, inferior nodule, FNA (cytospin, smear x4): * Benign (TBS II). C. Left thyroid cyst, FNA (cytospin): * Nondiagnositic. * Macrophages and red blood cells. CYTOLOGY STUDY Slides are reviewed. CYTOLOGY GROSS A. Received is 30 ml of [id number]-[id number] cytolyt with particles and 4 smears labeled with the patient's name and and designated per the requisition as Left mid pole thyroid nodule. Submitted for cytology and cytospin. B. Received is 30 ml of [id number]-[id number]-[id number] cytolyt with particles and 4 smears labeled with the patient's name and and designated per the requisition as Left inferior thyroid nodule. Submitted for cytology and cytospin. C. Received is 15 ml of red-bloody fluid labeled with the patient's name and and designated per the requisition as Left thyroid cyst aspirate. Submitted for cytology and cytospin. 06/23/2025 CPT: 98308i9,57639
--- NOTE | 2025-06-23 08:48 | CYSPIN_PTH ---
PATIENT: ARMIDA LEONG LOC: [facility] U#:[id number] AGE/SX: 80/F ROOM: RE06/23/[address]: Dr. Aaron Sorenson MD : 1945 BED: DIS: 06/23/2025 SPEC #: [id number] RECD: 06/23/25 10:25 STATUS: ARYA REIsabela #: [id number] TOOTIE: 06/23/25 08:[address]: Aaron Sorenson DEPT: CYTOLOGY RECD BY: Jason Montes ENTERED: 06/23/25 10:43 SP TYPE: CYSPIN FL OTHR DR: Edu Figueroa MD Tissues: A - Thyroid gland, NOS B - Thyroid gland, NOS C - Thyroid gland, NOS Procedures: Pap Stain (control) Special Stain Group II Diff Quik Stain (control) Cytospin Fluid Cytology Other HEADER OPERATION: Fine needle aspiration of left thyroid nodules PRE-OP DIAGNOSIS: Left thyroid nodules TISSUE SUBMITTED: A- Left mid pole thyroid nodule, B- Left inferior thyroid nodule, C- Left thyroid cyst aspirate DIAGNOSIS CYTOLOGY A. Left thyroid, mid-pole nodule, FNA (cytospin, smear x4): * Nondiagnostic. * Insufficient cellularity. B. Left thyroid, inferior nodule, FNA (cytospin, smear x4): * Benign (TBS II). C. Left thyroid cyst, FNA (cytospin): * Nondiagnositic. * Macrophages and red blood cells. CYTOLOGY STUDY Slides are reviewed. CYTOLOGY GROSS A. Received is 30 ml of [id number]-[id number] cytolyt with particles and 4 smears labeled with the patient's name and and designated per the requisition as Left mid pole thyroid nodule. Submitted for cytology and cytospin. B. Received is 30 ml of [id number]-mhdb-upfyud cytolyt with particles and 4 smears labeled with the patient's name and and designated per the requisition as Left inferior thyroid nodule. Submitted for cytology and cytospin. C. Received is 15 ml of red-bloody fluid labeled with the patient's name and and designated per the requisition as Left thyroid cyst aspirate. Submitted for cytology and cytospin. 06/23/2025 CPT: [id number]
== END | disposition home or self-care (01) ==
LOC: LABSPEC 10:27
PROVIDERS: PCP Family Medicine; Referring Provider Surgery; Visit Provider Surgery
DX: E04.2 Nontoxic multinodular goiter (principal)
CPT/HCPCS: 88108; 88161; 88313